=== PATIENT | male | born 2000 | race Caucasian/White ===

== ENCOUNTER 2020-02-20 16:50 | Inpatient (IN) ==
[2020-02-20] MEDS ORDERED: MoRPHine SULFATE 4 MG/ML 1 ML CARP\\VIAL IV STA (17:15)
[2020-02-20] MEDS ORDERED: SODIUM CHLORIDE 0.9% 1000ML 500 ML IV ONE (17:15)
[2020-02-20] MEDS ORDERED: KETOROLAC TROMETHAMINE 15 MG/ML VIAL IV STA (17:15)
[2020-02-20] MEDS ORDERED: diphenhydrAMINE 50 MG/ML VIAL IV STA (17:15)
--- NOTE | 2020-02-20 17:23 | Emergency Department Note ---
Impression & Plan Meningitis, Headache, Stiff neck ED Provider Note NAME: GHULAM BONILLA AGE: 19 SEX: M : 2000 ARRIVES VIA: Walk-In INFORMANT: [Patient][, ] ED PROVIDER(S): [Michael Gil MD] CHIEF COMPLAINT: Flulike symptoms HISTORY OF PRESENT ILLNESS: The patient is a 19-year-old male presents to the ER with around 20 hours of flulike symptoms. The patient had a temperature of around 103 last evening. He has neck pain, body aches, and headache. His pain is an 8/10. The patient was here earlier this morning, coronavirus testing was negative. Chest x-ray and lab work was unremarkable. He was felt to be suffering from a general viral illness. The patient states that since being discharged, he has had worsening symptoms, he has a diffuse headache and neck pain, he is concerned about the possibility of meningitis. This diagnosis was discussed with him earlier this morning. The patient has had a lumbar puncture before, he understands the procedure and the necessity of obtaining spinal fluid to rule out meningitis. There has been no sore throat, no cough, he has had no known coronavirus exposures. No urinary complaints. No abdominal pain, no rash. No known tick bites. REVIEW OF SYSTEMS: See HPI for pertinent positives and negatives. A total of ten systems were reviewed and were otherwise negative. PMHx/PSHx: See Below SOCIAL HISTORY: See Below. PHYSICAL EXAM: GENERAL: Patient is in no acute distress. HEENT: No acute trauma, normocephalic atraumatic, mucous membranes moist, no nasal congestion, no scleral icterus. NECK: No stridor, no adenopathy, no meningismus, trachea is midline. Flexes chin to chest without difficulty. LUNGS: Clear to auscultation bilaterally, no wheeze, no rhonchi, breath sounds equal. HEART: Without murmurs gallops or rubs, regular rate and rhythm. ABDOMEN: Soft, nontender, bowel sounds positive, no hernias, no peritonitis. EXTREMITIES: No cyanosis or edema, full range of motion of all the joints without pain or difficulty, no signs for acute trauma. NEUROLOGIC: Oriented x 3, no acute motor or sensory deficits, no focal weakness. SKIN: No rash, no jaundice, no diaphoresis. DIFFERENTIAL DIAGNOSIS: Sepsis, UTI, pneumonia, metabolic, electrolyte abnormalities, coronavirus, Lyme disease, meningitis, cardiac sources, intracerebral event, toxicologic, neurologic, as well as other pathologies. EMERGENCY DEPARTMENT COURSE/PROCEDURES: Lumbar puncture: This procedure was performed by me. Risks and benefits of the procedure were discussed. Patient was placed seated on the stretcher. Lumbar landmarks were identified. Betadine was used for prep. Sterile drapes were applied. Using sterile technique, lidocaine was used to anesthetize the lumbar area. Using sterile technique, I was able to access the spinal canal with a 22- gauge spinal needle. There were no complications. Fluid was collected for analysis and sent to the lab. Patient tolerated the procedure well. MEDICAL DECISION MAKING: There is no leukocytosis. The patient is mildly anemic with a hemoglobin of 12.6. There is a normal platelet count. I did review his laboratory testing from earlier today. He did not have any significant electrolyte abnormality, no renal failure. Covid testing was negative. The patient presents with a headache and neck stiffness. He had a fever last night. He did have concern for meningitis. I spoke to the patient about performing a lumbar puncture, he did consent. The risks and benefits were discussed. The lumbar puncture was done as mentioned above, no complications. The fluid was cloudy. Analysis of the fluid does suggest meningitis. His of bio-fire was positive for Neisseria. The patient was given IV Decadron, IV ceftriaxone. He was ordered for IV vancomycin. He received IV saline for hydration, IV morphine for pain, IV Toradol for pain. He received IV Benadryl to help with his headache and with potential nausea. I spoke to the patient. I spoke with his father over the phone as well. Ho spitalization is warranted. The patient looks well despite the diagnosis of potential Neisseria meningitis. I spoke with case management. The on-call hospitalist was consulted. Past Med/Surg History Medical History AML (acute myeloblastic leukemia) s/p bone marrow transplant.. last chemo in 2018 Cardiomyopathy Social History Smoking Status: Never smoker Do You Dip or Chew Tobacco: No; Hx Alcohol Use: No Hx Substance Use: No Preferred Language: Telugu Communication Ability: Effective Stockroom Inventory Clerk Required: No Beliefs That Will Affect Care: None Current Living Situation: Alone Other Information That Helps Us Care for You: No Feels Safe at Home: Yes Safety Concerns: Feels Safe At This Time Assistive Devices: None Allergies Allergies Allergy/AdvReac Type Severity Reaction Status Date / Time peanut Allergy Severe Anaphylaxis Verified 02/20/20 06:37 ALL NUTS Allergy Severe Hives Uncoded 02/20/20 20:27 Home Meds Home Medications Medication Instructions Recorded Confirmed ascorbic acid (vitamin C) [Vitamin 0 mg PO DAILY 02/20/20 02/20/20 C] lactobacillus combination no.4 0 mmu cells PO DAILY 02/20/20 02/20/20 [Probiotic] lisinopril 10 mg PO DAILY 02/20/20 02/20/20 multivitamin 1 tab PO DAILY 02/20/20 02/20/20 Results & Data (ED) Vital Signs Vital Signs - 24 hr 02/20/20 16:56 02/20/20 17:31 02/20/20 17:35 Temperature 36.6 C Temperature Source Oral Pulse Rate 77 64 49 L Pulse Rate from SpO2 Sensor 60 52 L Respiratory Rate 18 18 15 Respiratory Effort / Characteristics Non-Labored Spontaneous Respiratory Depth Normal Respiratory Pattern Regular Blood Pressure 127/68 119/71 Blood Pressure Mean 87 89 Blood Pressure Position Sitting Pulse Oximetry 99 98 100 Oxygen Delivery Method Room Air Sepsis Recent Fever Within 48 Hours No Sepsis New/Unexplained Change in Mental Status N/A Sepsis Action Taken by Nursing No Action Required 02/20/20 18:00 02/20/20 18:30 02/20/20 19:00 Temperature Temperature Source Pulse Rate 60 59 L 55 L Pulse Rate from SpO2 Sensor 57 L 58 L Respiratory Rate 14 14 13 Respiratory Effort / Characteristics Respiratory Depth Respiratory Pattern Blood Pressure 136/54 L 124/44 L 128/64 Blood Pressure Mean 75 89 94 Blood Pressure Position Pulse Oximetry 99 99 Oxygen Delivery Method Sepsis Recent Fever Within 48 Hours Sepsis New/Unexplained Change in Mental Status Sepsis Action Taken by Nursing 02/20/20 19:30 02/20/20 20:00 02/20/20 20:30 Temperature Temperature Source Pulse Rate 59 L 55 L 56 L Pulse Rate from SpO2 Sensor Respiratory Rate 15 18 18 Respiratory Effort / Characteristics Respiratory Depth Respiratory Pattern Blood Pressure 125/69 126/71 138/61 Blood Pressure Mean 78 88 96 Blood Pressure Position Pulse Oximetry Oxygen Delivery Method Sepsis Recent Fever Within 48 Hours Sepsis New/Unexplained Change in Mental Status Sepsis Action Taken by Care Home Medications Current Medication List: was personally reviewed by me Laboratory Data Attestation: I reviewed the patient's lab results. Result diagrams: 02/20/20 17:25 Lab Results 02/20/20 02/20/20 02/20/20 Range/Units 17:25 17:25 18:30 WBC 9.48 (4.8-10.8) K/uL RBC 3.96 L (4.7-6.1) M/uL Hgb 12.6 L (14.0-18.0) g/dL Hct 38.1 L (42-52) % MCV 96.2 (80-100) fL MCH 31.8 (25-34) pg MCHC 33.1 (32-36) g/dL RDW Std Deviation 46.1 (36.4-46.3) fL RDW Coeff of Navya 13.3 (11.5-14.5) % Plt Count 159 (130-400) K/uL MPV 9.4 (7.4-10.4) fL Immature Gran % (Auto) 0.1 % Neut % (Auto) 84.0 % Lymph % (Auto) 7.6 % Colbert % (Auto) 8.3 % Eos % (Auto) 0.0 % Baso % (Auto) 0.0 % Neut # (Auto) 7.96 H (1.4-6.5) K/uL Lymph # (Auto) 0.72 L (1.2-3.4) K/uL Colbert # (Auto) 0.79 H (0.11-0.59) K/uL Eos # (Auto) 0.00 (0-0.5) K/uL Baso # (Auto) 0.00 (0-0.2) K/uL Immature Gran # (Auto) 0.01 (0.00-0.02) K/uL CSF Appearance CSF Color Xanthrochromic CSF WBC (0-5) /uL CSF RBC (0-) /uL CSF Cell Count Tube # CSF Mononuclear WBCs % CSF Mononuclear WBCs % % CSF Polynuclear WBCs % CSF Polynuclear WBCs % % CSF Chemistry Tube # 1 CSF Glucose < 1 L (40-70) mg/dl CSF Total Protein 841.0 H (15-45) mg/dl CSF C.neoform/gat PCR (NotDetected) CSF CMV DNA (PCR) (NotDetected) CSF Enterovirus (PCR) (NotDetected) CSF E. coli K1 (PCR) (NotDetected) CSF H. influenzae (PCR) (NotDetected) CSF HSV I (PCR) (NotDetected) CSF HSV II (PCR) (NotDetected) CSF HHV 6 (PCR) (NotDetected) CSF L.monocytogenes PCR (NotDetected) CSF N. meningitidis PCR (NotDetected) CSF Parechovirus (PCR) (NotDetected) CSF S. agalactiae (PCR) (NotDetected) CSF S. pneumoniae (PCR) (NotDetected) CSF VZV DNA (PCR) (NotDetected) Lyme Disease IgG Ab Negative (Negative) Lyme Disease IgM Ab Negative (Negative) 02/20/20 02/20/20 Range/Units 18:30 18:30 WBC (4.8-10.8) K/uL RBC (4.7-6.1) M/uL Hgb (14.0-18.0) g/dL Hct (42-52) % MCV (80-100) fL MCH (25-34) pg MCHC (32-36) g/dL RDW Std Deviation (36.4-46.3) fL RDW Coeff of Navya (11.5-14.5) % Plt Count (130-400) K/uL MPV (7.4-10.4) fL Immature Gran % (Auto) % Neut % (Auto) % Lymph % (Auto) % Colbert % (Auto) % Eos % (Auto) % Baso % (Auto) % Neut # (Auto) (1.4-6.5) K/uL Lymph # (Auto) (1.2-3.4) K/uL Colbert # (Auto) (0.11-0.59) K/uL Eos # (Auto) (0-0.5) K/uL Baso # (Auto) (0-0.2) K/uL Immature Gran # (Auto) (0.00-0.02) K/uL CSF Appearance Cloudy CSF Color Yellow Xanthrochromic Xanthochromic CSF WBC 24123 H* (0-5) /uL CSF RBC 530 (0-) /uL CSF Cell Count Tube # 3 CSF Mononuclear WBCs 5.0 % CSF Mononuclear WBCs % 7.3 % CSF Polynuclear WBCs 95.0 % CSF Polynuclear WBCs % 92.7 % CSF Chemistry Tube # Cancelled CSF Glucose Cancelled (40-70) mg/dl CSF Total Protein (15-45) mg/dl CSF C.neoform/gat PCR Not Detected (NotDetected) CSF CMV DNA (PCR) Not Detected (NotDetected) CSF Enterovirus (PCR) Not Detected (NotDetected) CSF E. coli K1 (PCR) Not Detected (NotDetected) CSF H. influenzae (PCR) Not Detected (NotDetected) CSF HSV I (PCR) Not Detected (NotDetected) CSF HSV II (PCR) Not Detected (NotDetected) CSF HHV 6 (PCR) Not Detected (NotDetected) CSF L.monocytogenes PCR Not Detected (NotDetected) CSF N. meningitidis PCR DETECTED A* (NotDetected) CSF Parechovirus (PCR) Not Detected (NotDetected) CSF S. agalactiae (PCR) Not Detected (NotDetected) CSF S. pneumoniae (PCR) Not Detected (NotDetected) CSF VZV DNA (PCR) Not Detected (NotDetected) Lyme Disease IgG Ab (Negative) Lyme Disease IgM Ab (Negative) Administered Medications Morphine Sulfate (Morphine Sulfate 2 Mg/Ml Carp) 2 mg IV Q3H PRN PRN Reason: Severe Pain Stop: 03/05/20 22:24 Last Admin: 02/20/20 22:54 Dose: 2 mg Documented by: [id number] Discontinued Medications Ceftriaxone Sodium (Ceftriaxone Sodium 2000mg/70ml D5w) 2,000 mg IV ONE ONE Stop: 02/20/20 19:01 Last Admin: 02/20/20 18:58 Dose: 2,000 mg Documented by: [id number] Dexamethasone (Dexamethasone Sod Inj 10 Mg/Ml Vial) 10 mg IV NOW STA Stop: 02/20/20 18:30 Last Admin: 02/20/20 18:58 Dose: 10 mg Documented by: [id number] Diphenhydramine HCl (Diphenhydramine 50 Mg/Ml Vial) 25 mg IV NOW STA Stop: 02/20/20 17:16 Last Admin: 02/20/20 17:38 Dose: 25 mg Documented by: [id number] Sodium Chloride (Nss 1000ml) 500 mls @ 999 mls/hr IV .Q31M ONE Stop: 02/20/20 17:45 Last Infusion: 02/20/20 20:15 Dose: 0 mls/hr Documented by: [id number] Admin: 02/20/20 17:38 Dose: 999 mls/hr Documented by: [id number] Vancomycin HCl 2,000 mg/ (Sodium Chloride) 540 mls @ 200 mls/hr IV ONE ONE Stop: 02/20/20 21:42 Last Infusion: 02/20/20 22:23 Dose: 0 mls/hr Documented by: [id number] Admin: 02/20/20 19:30 Dose: 200 mls/hr Documented by: [id number] Ketorolac Tromethamine (Ketorolac Tromethamine 15 Mg/Ml Vial) 15 mg IV NOW STA Stop: 02/20/20 17:16 Last Admin: 02/20/20 17:38 Dose: 15 mg Documented by: [id number] Ketorolac Tromethamine (Ketorolac Tromethamine 15 Mg/Ml Vial) Confirm Administered Dose 15 mg .ROUTE .STK-MED ONE Stop: 02/20/20 22:27 Last Admin: 02/20/20 22:29 Dose: 15 mg Documented by: [id number] Lidocaine HCl (Lidocaine Hcl 1% 20 Ml Vial) Confirm Administered Dose 20 ml .ROUTE .STK-MED ONE Stop: 02/20/20 17:42 Last Admin: 02/20/20 20:39 Dose: Not Given Documented by: [id number] Morphine Sulfate (Morphine Sulfate 4 Mg/Ml 1 Ml Carp\Vial) 4 mg IV NOW STA Stop: 02/20/20 17:16 Last Admin: 02/20/20 17:38 Dose: 4 mg Documented by: [id number] Discharge Plan Visit Data Chief Complaint: Flu Like Symptoms Stated Complaint: HEADACHE, STIFF NECK, FLU LIKE SYMPTOMS ED Provider: Michael Gil Discharge Problem: Meningitis, Headache, Stiff neck Patient Disposition: Admitted As Inpatient Condition: Good Discharge Instructions Interventions: ED Discharge Assessment Last Done: 02/20/20 21:50 Discharge Problem: Headache Qualifiers: Headache type: unspecified Headache chronicity pattern: acute headache Intractability: not intractable Qualified Code(s): R51.9 - Headache, unspecified
[2020-02-20 17:40] LABS: Hematocrit (blood only) 38.1 % (42-52); Hemoglobin 12.6 g/dL (14.0-18.0); Immature Granulocytes # (auto) 0.01 K/uL (0.00-0.02); Immature Granulocytes % (auto) 0.1 %; Lymphocytes # (auto) 0.72 K/uL (1.2-3.4); Lymphocytes % (auto) 7.6 %; Mean Corpuscular Hemoglobin 31.8 pg (25-34); Mean Corpuscular Hgb Conc 33.1 g/dL (32-36); Mean Corpuscular Volume 96.2 fL (80-100); Mean Platelet Volume 9.4 fL (7.4-10.4); Monocytes # (auto) 0.79 K/uL (0.11-0.59); Monocytes % (auto) 8.3 %; Neutrophils # (auto) 7.96 K/uL (1.4-6.5); Platelet Count 159 K/uL (130-400); RDW Coefficient of Variation 13.3 % (11.5-14.5); RDW Standard Deviation 46.1 fL (36.4-46.3); Red Blood Count 3.96 M/uL (4.7-6.1); White Blood Count 9.48 K/uL (4.8-10.8)
[2020-02-20] MEDS ORDERED: LIDOCAINE HCL 1% 20 ML VIAL ONE (17:41)
[2020-02-20 18:29] LABS: Lyme Ab IgG w/WB Rflx Negative (Negative); Lyme Ab IgM w/WB Rflx Negative (Negative)
[2020-02-20] MEDS ORDERED: DEXAMETHASONE SOD INJ 10 MG/ML VIAL IV STA (18:29)
[2020-02-20] MEDS ORDERED: cefTRIAXone SODIUM 2000MG/70ML D5W IV ONE (19:00)
[2020-02-20] MEDS ORDERED: VANCOMYCIN HCL 2,000 MG in SODIUM CHLORIDE 0.9% 500 ML IV ONE (19:01)
[2020-02-20 19:02] LABS: CSF Chemistry Tube # 1
[2020-02-20 19:07] LABS: CSF Glucose < 1 mg/dl (40-70)
[2020-02-20 19:19] LABS: Appearance CSF Cloudy; CSF Count Tube # 3; CSF Xanthrochromic Xanthochromic; Color CSF Yellow
[2020-02-20 19:21] LABS: White Blood Cell CSF (A) 19760 /uL (0-5)
[2020-02-20 19:22] LABS: Red Blood Cell CSF (A) 530 /uL (0-)
[2020-02-20 19:24] LABS: Red Blood Cell CSF (B) 540 /uL (0-)
[2020-02-20 20:15] LABS: Mononuclear WBC CSF 7.3 %; Polynuclear WBC CSF 92.7 %
[2020-02-20 20:34] LABS: Cryptococcus neoformans/ga PCR Not Detected (NotDetected); Cytomegalovirus PCR Not Detected (NotDetected); Enterovirus PCR Not Detected (NotDetected); Escherichia coli K1 PCR Not Detected (NotDetected); Haemophilius influenzae PCR Not Detected (NotDetected); Herpes Simplex Virus 1 PCR Not Detected (NotDetected); Herpes Simplex Virus 2 PCR Not Detected (NotDetected); Human Herpes Virus 6 PCR Not Detected (NotDetected); Human Parechovirus PCR Not Detected (NotDetected); Listeria monocytogenes PCR Not Detected (NotDetected); Streptococcus agalactiae PCR Not Detected (NotDetected); Streptococcus pneumoniae PCR Not Detected (NotDetected); Varicella Zoster Virus PCR Not Detected (NotDetected)
[2020-02-20 20:36] LABS: Neisseria meningitidis PCR DETECTED (NotDetected)
--- NOTE | 2020-02-20 22:14 | History & Physical Report ---
Date of Service February 20, 2020 Assessment & Plan (1) Meningitis: Pt is a 19yo with a PMHx significant for AML s/p bone marrow transplant in 2018 and ?cardiomyopathy on Lisinopril who was admitted with acute meningitis. Acute Meningitis -Pt states he had a fever as high as 103 yesterday with a diffuse headache that woke him up from sleep at 3AM -Pt presented to the ED this AM before being discharged and coming back out of concern for meningitis -This visit afebrile, WBC WNL, having some neck pain -LP showed [id number], NZF=191, protein 841, glucose<1. -CSF PCR POSITIVE for N. Meningitides -CSF PCR negative for Strep pneumoniae, H. flu, HSV, VZV, CMV or enterovirus -CSF gram stain showed no organisms or WBCs. CSF culture pending. -Blood Cx2 pending -COVID NEGATIVE -UA unremarkable -ED Course: Vancomycin load, Dexamethasone 10mg, Rocephin 2g, pain meds -Given PCR positive for only N. meningitides (and not strep pneumoniae) will continue with just Rocephin 2g BID daily -Tylenol 1000mg q8h PRN, Toradol 15mg q6h IV PRN and morphine 2mg q3h PRN for pain -Droplet precautions -Of note, pt states he received the Menactra vaccine (covers for meningitis A, C, Y and W125) but did NOT receive the meningitis B vaccine- stated he intended to get it during break. -consider neurology consult, did not think necessary at this time. -meningitis cases per CDC guidelines needs to be reported to the state- not done tonight. Consider doing in the AM. Hx of AML -Pt states he was diagnosed in August 2017 -Was [facility] at [facility] ([facility]) with a bone marrow transplant and chemotherapy that year as well -Last chemotherapy treatment was 2018 -does not appear to be immunosuppressed currently. ?Cardiomyopathy -Pt states that he is on Lisinopril daily for a "low EF" -suspect it was prescribed to help with cardiomyopathy and remodeling associated with chemotherapy -Follows with a b and b gang worker from [facility] yearly, pt unable to recall her name -continue lisinopril 10mg daily -consider an echo, did not think necessary at this time as pt without cardiac symptoms FEN/GI: Regular diet DVT prophylaxis: Ambulation as tolerated CODE STATUS: Full code Dispo: Med/Surg (2) History of bone marrow transplant: History of Present Illness Primary Care Provider: [facility] Pt is a 19yo with a PMHx significant for AML s/p bone marrow transplant in 2018 and ?cardiomyopathy on Lisinopril who was admitted with acute meningitis. Pt states that he was in his usual state of health until yesterday when he developed a fever of 103. He was then awoken from sleep with a headache that was diffuse and 10/10 and he presented to the ED this AM. He states that it was football weekend and he was at a constitution party on Wednesday in someone's apartment which was packed with many people not wearing masks. No known positive COVID contacts however but states it is possible. States he got the Menactra vaccine but did not get the meningitis B vaccine, which he intended to get once he went home to [place] for thanksgiving. States he has some associated photophobia, neck pain but not neck stiffness and in addition to the headache some pain behind his eyeballs. Denies any N/V, phonophobia. No known drug allergies. His surgical History includes the bone marrow transplant. Fam Hx unremarkable. Current meds include Lisinopril 10mg daily and multivitamins. 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 States he does not smoke or vape, is a social drinker and does not use recreational drugs. ED Course: Vancomycin load, Dexamethasone 10mg, Rocephin 2g, pain meds Allergies Allergy/AdvReac Type Severity Reaction Status Date / Time peanut Allergy Severe Anaphylaxis Verified 02/20/20 06:37 ALL NUTS Allergy Severe Hives Uncoded 02/20/20 20:27 Home Medications Home Medications Medication Instructions Recorded Confirmed Type ascorbic acid (vitamin C) [Vitamin 0 mg PO DAILY 02/20/20 02/20/20 History C] lactobacillus combination no.4 0 mmu cells PO DAILY 02/20/20 02/20/20 History [Probiotic] lisinopril 10 mg PO DAILY 02/20/20 02/20/20 History multivitamin 1 tab PO DAILY 02/20/20 02/20/20 History Past Med/Surg History Medical History AML (acute myeloblastic leukemia) s/p bone marrow transplant.. last chemo in 2018 Cardiomyopathy Social History Smoking Status: Never smoker Do You Dip or Chew Tobacco: No; Hx Alcohol Use: No Hx Substance Use: No Preferred Language: Malay Communication Ability: Effective [employer] Special Education Teacher Required: No Beliefs That Will Affect Care: None Current Living Situation: Alone Other Information That Helps Us Care for You: No Feels Safe at Home: Yes Safety Concerns: Feels Safe At This Time Assistive Devices: None Review of Systems Constitutional: + fever; no chills and no sweats Eyes: + photophobia; no worsening vision Ear, Nose, Mouth, Throat: no nasal congestion and no sore throat Respiratory: no cough and no dyspnea Cardiovascular: no chest pain, no dyspnea, no palpitations and no edema Gastrointestinal: no abdominal pain, no nausea, no vomiting, no constipation, no diarrhea/loose stools and no blood in stools Genitourinary: no dysuria Musculoskeletal: + neck pain; no back pain and no stiffness Integumentary: no rash Neurologic: + headache(s); no tingling, no numbness, no dizziness and no confusion Psychiatric: no confusion Physical Exam Physical Exam: General: Alert, oriented. No acute distress, laying in bed Skin: No noted rashes or bruises Psych: Appropriate mood and affect Neuro: CNII-XII grossly intact, Kernig's sign negative on my exam HEENT: NC/AT, PERRLA, EOMI, oropharynx moist. Chest: Nontender to palpation. CV: RRR, Normal s1, s2. No murmurs appreciated Resp: Breath sounds clear bilaterally, no increased effort of breathing. No crackles/rhonchi/rales. Abdomen: Soft, nontender, nondistended. No guarding. No organomegaly appreciated. Extremities: No edema in lower extremities bilaterally. Results & Data Results & Data ([facility]) Vital Signs (Past 12 Hours) Vital Signs Temp Pulse Resp BP Pulse Ox 02/20/20 20:00 55 L 18 126/71 02/20/20 19:30 59 L 15 125/69 02/20/20 19:00 55 L 13 128/64 02/20/20 18:30 59 L 14 124/44 L 99 02/20/20 18:00 60 14 136/54 L 99 02/20/20 17:35 49 L 15 100 02/20/20 17:31 64 18 119/71 98 02/20/20 16:56 36.6 C 77 18 127/68 99 Supervising Physician Co-Signing Physician Notes Patient seen and examined, chart reviewed, case discussed with Dr. Tinsley and I agree with her assessment and plan as documented above. Briefly, patient is a 19yo male presenting with bacterial meningitis [place] [address] WBCs, elevated protein at 841 wtih N. meningitidis PCR detected. Patient is afebrile, HD stable Mild photophobia and neck stiffness Nontoxic in appearance No neurological deficits Labs and images reviewed Assessment/Plan - Neisseria meningitis -Ceftriaxone 2gm IV daily -Droplet precautions -Neuro checks -Remainder of plan as above Resident Activity Tracking Resident Involvement: Resident Care Provided Care Provided: Adult Hospital Medicine
[2020-02-20] MEDS ORDERED: KETOROLAC TROMETHAMINE 15 MG/ML VIAL ONE (22:26)
[2020-02-20] MEDS: MoRPHine SULFATE 2 MG/ML CARP IV PRN (22:54)
[2020-02-21] MEDS: MoRPHine SULFATE 2 MG/ML CARP IV PRN ×7 (01:48→22:27)
[2020-02-21] MEDS: ACETAMINOPHEN 500 MG TAB PO PRN ×4 (01:48→22:33)
--- NOTE | 2020-02-21 06:04 | Billing Data ---
Date of Service February 20, 2020 Coding Level of Care Code 63173 Initial Inpt Care Lvl 2
[2020-02-21] MEDS: KETOROLAC TROMETHAMINE 15 MG/ML VIAL IV PRN ×3 (06:33→18:30)
[2020-02-21 07:34] LABS: Hematocrit (blood only) 35.3 % (42-52); Hemoglobin 11.5 g/dL (14.0-18.0); Immature Granulocytes # (auto) 0.03 K/uL (0.00-0.02); Immature Granulocytes % (auto) 0.3 %; Lymphocytes % (auto) 10.8 %; Mean Corpuscular Hemoglobin 31.3 pg (25-34); Mean Corpuscular Hgb Conc 32.6 g/dL (32-36); Mean Corpuscular Volume 95.9 fL (80-100); Mean Platelet Volume 9.5 fL (7.4-10.4); Monocytes # (auto) 0.98 K/uL (0.11-0.59); Monocytes % (auto) 8.8 %; Neutrophils # (auto) 8.92 K/uL (1.4-6.5); Neutrophils % (auto) 80.1 %; Platelet Count 150 K/uL (130-400); RDW Coefficient of Variation 13.6 % (11.5-14.5); RDW Standard Deviation 47.2 fL (36.4-46.3); Red Blood Count 3.68 M/uL (4.7-6.1); White Blood Count 11.13 K/uL (4.8-10.8)
--- NOTE | 2020-02-21 07:44 | Hospitalist Progress Note ---
Date of Service February 21, 2020 Assessment & Plan (1) Meningitis: Pt is a 19yo with a PMHx significant for AML s/p bone marrow transplant in 2018 and ?cardiomyopathy on Lisinopril who was admitted with acute meningitis. Acute Meningitis -Pt states he had a fever as high as 103 yesterday with a diffuse headache that woke him up from sleep at 3AM -Pt presented to the ED this AM before being discharged and coming back out of concern for meningitis -This visit afebrile, WBC WNL, having some neck pain -LP showed [id number], BTX=737, protein 841, glucose<1. -CSF PCR POSITIVE for N. Meningitides -CSF PCR negative for Strep pneumoniae, H. flu, HSV, VZV, CMV or enterovirus -CSF gram stain showed no organisms or WBCs. CSF culture pending. -Blood Cx2 pending -COVID NEGATIVE -UA unremarkable -ED Course: Vancomycin load, Dexamethasone 10mg, Rocephin 2g, pain meds -Given PCR positive for only N. meningitides (and not strep pneumoniae) will continue with just Rocephin 2g BID daily -Tylenol 1000mg q8h PRN, Toradol 15mg q6h IV PRN and morphine 2mg q3h PRN for pain -Droplet precautions -Of note, pt states he received the Menactra vaccine (covers for meningitis A, C, Y and W125) but did NOT receive the meningitis B vaccine- stated he intended to get it during break. -consider neurology consult, did not think necessary at this time. -meningitis cases per CDC guidelines needs to be reported to the state- not done tonight. Consider doing in the AM. Hx of AML -Pt states he was diagnosed in August 2017 -Was treated at the [facility] ([facility]) with a bone marrow transplant and chemotherapy that year as well -Last chemotherapy treatment was 2018 -does not appear to be immunosuppressed currently. ?Cardiomyopathy -Pt states that he is on Lisinopril daily for a "low EF" -suspect it was prescribed to help with cardiomyopathy and remodeling associated with chemotherapy -Follows with a distance learning program coordinator from [facility] yearly, pt unable to recall her name -continue lisinopril 10mg daily -consider an echo, did not think necessary at this time as pt without cardiac symptoms FEN/GI: Regular diet DVT prophylaxis: Ambulation as tolerated CODE STATUS: Full code Dispo: Med/Surg (2) History of bone marrow transplant: Admission and Anticipated Discharge Date Admission Date: February 20, 2020 Results & Data Results & Data ([facility]) Vital Signs (Past 12 Hours) Vital Signs Temp Pulse Pulse Resp BP BP Pulse Ox 02/20/20 22:15 36.8 C 52 L 14 144/81 H 98 02/20/20 21:30 55 L 19 129/71 02/20/20 21:00 82 18 128/69 02/20/20 20:30 56 L 18 138/61 02/20/20 20:00 55 L 18 126/71
[2020-02-21] MEDS: cefTRIAXone SODIUM 2,000 MG in DEXTROSE 5% 50 ML IV SCH ×2 (08:01→20:05)
[2020-02-21 08:10] LABS: BUN Creatinine Ratio 12.4 (10-20); Calcium 9.1 mg/dl (8.5-10.1); Creatinine Clr Calc Pharmacy 103.3 ml/min; Est GFR (African American) 106.3; Est GFR (Non-African American) 91.7
[2020-02-21] MEDS: lisinopril 10 MG TAB PO SCH (08:11)
--- NOTE | 2020-02-21 19:11 | Hospitalist Progress Note ---
Date of Service February 21, 2020 Assessment & Plan (1) Meningitis: neissieria - fortunately doing better on rocephin - continue. d/w pt likely will need to treat for 7 days rocephin -serial exams, supportive care, anticipate improvement -infection control team notified to ensure appropriate DONA notifications/etc (2) History of bone marrow transplant: fortunately doing well despite above -was to finish re-vaccinations later this fall - should follow through with this (3) DVT prophylaxis: ambulation (4) Discharge planning issues: stable on med/surg. continue ceftriaxone - likely will need to be here to complete 7 days IV treatment Admission and Anticipated Discharge Date Admission Date: February 20, 2020 Subjective headache off and on - worse a little when i see him but notes way better than it was before. generally feeling better than before. neck less stiff. photophobia and phonophobia. no rashes mom present updated to the best of my ability and to her satisfaction. asked us to call his doc at [facility] - gave pager # of [phone] - tried multiple times -- no ability to enter a number Review of Systems Review of Systems: All systems reviewed & are unremarkable except as noted in HPI & below Physical Exam Physical Exam: gen aaox3 pleasant nad heent nc at mmm neck fairly supple maybe sl tight after about 30 degrees of flexion. cn 2-12 grossly intact gross motor/sensory intact. breathing unlabored no accessory muscles good effort skin no rashes no pallor or icterus Results & Data Results & Data ([facility]) Vital Signs (Past 12 Hours) Vital Signs Temp Pulse Resp BP Pulse Ox 02/21/20 15:15 97.9 F 57 L 16 113/70 100 02/21/20 07:55 98.2 F 60 15 125/66 98 PG Care Time/CCT Total # of Minutes Spent Total Time Spent with Patient: Total time spent is greater than 50% in coordination of care (as documented) at patient's floor/unit and/or counseling patient: Coding Level of Care Code 69100 Subseq Hosp Care Lvl 3 Diagnoses Meningitis G03.9 History of bone marrow transplant Z94.81 DVT prophylaxis Z29.9 Discharge planning issues Z02.9
[2020-02-21] MEDS ORDERED: MELATONIN 3 MG TAB PO PRN (22:17)
[2020-02-21] MEDS: PANTOprazole 40 MG in SYRINGE 0 ML IV SCH (22:27)
--- NOTE | 2020-02-21 22:34 | Communication Note ---
Date of Service: February 21, 2020 Pt requested to speak with physician overnight. States whenever he is awake, he has no headache, so feels like his symptoms are improving in that sense. However whenever he falls alseep, a 7/10 headache will wake him up from sleep. States he is tired and would like to sleep. In discussion with Dr. Ott, Toradol was increased to 30mg IV q6h, p rotonix 40mg BID was ordered for gut protection and melatonin 6mg was ordered to help with sleep. We did not think head imaging was warranted at this time. Can consider if symptoms are getting worse. Resident Activity Tracking Resident Involvement: Occasional Babysitter Coverage Note Care Provided: Adult Hospital Medicine
[2020-02-22] MEDS: KETOROLAC 30 MG/ML VIAL IV PRN ×3 (00:28→18:19)
[2020-02-22] MEDS: MoRPHine SULFATE 2 MG/ML CARP IV PRN ×6 (01:31→23:49)
[2020-02-22] MEDS: ONDANSETRON INJ 2 MG/ML 2 ML VIAL IV PRN ×3 (01:32→17:32)
--- NOTE | 2020-02-22 02:57 | Communication Note ---
Date of Service: February 22, 2020 Notified at about 1AM that pt had the acute onset of N/V. Pt stated that the headache woke him up from sleep once more, 11/02 but this time he vomitted as well. On my exam, neuro exam unremarkable. Ordered Zofran and a stat CT head wo contrast to rule out cerebral edema or increased ICP. 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
[2020-02-22 06:26] LABS: Eosinophils # (auto) 0.02 K/uL (0-0.5); Eosinophils % (auto) 0.2 %; Hemoglobin 10.8 g/dL (14.0-18.0); Immature Granulocytes # (auto) 0.02 K/uL (0.00-0.02); Immature Granulocytes % (auto) 0.2 %; Lymphocytes # (auto) 1.52 K/uL (1.2-3.4); Lymphocytes % (auto) 16.1 %; Mean Corpuscular Hemoglobin 31.3 pg (25-34); Mean Corpuscular Hgb Conc 32.7 g/dL (32-36); Mean Corpuscular Volume 95.7 fL (80-100); Mean Platelet Volume 9.4 fL (7.4-10.4); Monocytes # (auto) 0.54 K/uL (0.11-0.59); Monocytes % (auto) 5.7 %; Neutrophils # (auto) 7.34 K/uL (1.4-6.5); Neutrophils % (auto) 77.8 %; Platelet Count 138 K/uL (130-400); RDW Coefficient of Variation 13.4 % (11.5-14.5); RDW Standard Deviation 46.7 fL (36.4-46.3); Red Blood Count 3.45 M/uL (4.7-6.1); White Blood Count 9.44 K/uL (4.8-10.8)
--- NOTE | 2020-02-22 06:49 | CT Scan Report ---
CT head/brain wo con CLINICAL HISTORY: Next, new nausea and vomiting, meningitis. COMPARISON STUDY: No previous studies for comparison. TECHNIQUE: Axial CT of the brain is performed from the vertex to the skull base. IV contrast was not administered for this examination. A dose lowering technique was utilized adhering to the principles of ALARA. CT DOSE: 729.78 mGycm FINDINGS: No intra or extra-axial mass lesions are visualized. There is no CT evidence of acute cortical infarc tion. There is no evidence of midline shift. There is no acute hemorrhage. No calvarial fractures ar e visualized. There is no evidence of pathologic ventricular dilatation. There is no evidence of acute sinusitis IMPRESSION: Normal noncontrast head CT. ACT 112: Negative or not required by law. Electronically signed by: Irwin Alanis M.D. 02/22/2020 6:48 AM
[2020-02-22 07:01] LABS: BUN Creatinine Ratio 13.2 (10-20); Calcium 8.8 mg/dl (8.5-10.1); Creatinine Clr Calc Pharmacy 98.2 ml/min; Est GFR (Non-African American) 86.3; Potassium 3.8 mmol/L (3.5-5.1)
[2020-02-22] MEDS: cefTRIAXone SODIUM 2,000 MG in DEXTROSE 5% 50 ML IV SCH ×2 (07:22→19:10)
[2020-02-22] MEDS: ACETAMINOPHEN 500 MG TAB PO PRN ×3 (07:31→23:26)
[2020-02-22] MEDS: lisinopril 10 MG TAB PO SCH (08:03)
[2020-02-22] MEDS: PANTOprazole 40 MG in SYRINGE 0 ML IV SCH ×2 (08:04→19:46)
--- NOTE | 2020-02-22 10:04 | Hospitalist Progress Note ---
Date of Service February 22, 2020 Assessment & Plan (1) Meningitis: Pt is a 19yo with a PMHx significant for AML s/p bone marrow transplant in 2018 and ?cardiomyopathy on Lisinopril who was admitted with acute meningitis. N. Meningitis - afebrile since admission - N. Meningitis PCR positive from CSF, CSF culture growing Gram negative bacteria - WBC down to 9.4, bcx negative at 48 hours - 7 days of Rocephin BID 02/19 - 02/25 -Droplet precautions Pain Control -Tylenol 1000mg q8h PRN, Toradol 15mg q6h IV PRN and morphine 2mg q3h PRN for pain Hx of AML -Pt states he was diagnosed in August 2017 -Was [facility] at [facility] ([facility]) with a bone marrow transplant and chemotherapy that year as well -Last chemotherapy treatment was 2017 -does not appear to be immunosuppressed currently. Chemotherapy induced Cardiomyopathy -Pt states that he is on Lisinopril daily for a "low EF" -suspect it was prescribed to help with cardiomyopathy and remodeling associated with chemotherapy -Follows with a receiver from [facility] yearly -continue lisinopril 10mg daily FEN/GI: Regular diet DVT prophylaxis: Ambulation as tolerated CODE STATUS: Full code Dispo: Med/Surg (2) History of bone marrow transplant: Admission and Anticipated Discharge Date Admission Date: February 20, 2020 Supervising Physician Co-Signing Physician Notes I personally examined the patient and verified all morales points of history and exam, discussed case, and agree with decision making with Dr Navarrete. feeling a bit better ovreall - headache off and on bad but not as bad as before vitals noted nad heent nc at mmm breathing unlabored no accessory muscles good effort no nuchal rigidity neisseria meningitis - improving. rocephin, supportive care. Subjective didn't sleep well last night. Says that his headache last night would worsen whenever he closed his eyes. did have some nausea and vomiting overnight. stat CT head negative for midline shift/intracranial bleed/signs of increased intrcranial pressure. Feeling better this am, was able to sleep after getting CT scan. headache worse when lying down rather than sitting up. still photo and phonophobic. Review of Systems Constitutional: + insomnia; no fever, no chills, no body aches and no fatigue Eyes: + photophobia Respiratory: no cough and no pain on inspiration Cardiovascular: no chest pain and no dyspnea at rest Gastrointestinal: no abdominal pain Neurologic: + headache(s); no paresthesia and no radiating pain Physical Exam Physical Exam: Constitutional: in no apparent distress, sitting comfortably in bed. Eyes: EOMI, squinting eyes to avoid light Cardiac: RRR, no murmurs, gallops or rubs. Normal S1, S2 Pulm: CTA BL, no wheezes, rhonchi, crackles or rubs, moving air well throughout both lungs Abd: soft, nontender, nondistended, normal bowel sounds, no rebound or guarding Neck: no pain with anterior flexion Ext: no pain with flexion of legs to chest back: no tenderness to palpation of lumbar spinous processes, paraspinals. No redness or tenderness surrounding LP site. Results & Data Results & Data ([facility]) Vital Signs (Past 12 Hours) Vital Signs Temp Pulse Resp BP BP Pulse Ox 02/22/20 07:50 36.9 C 55 L 16 135/55 L 100 02/22/20 00:03 36.8 C 52 L 16 162/68 H 100 Laboratory Results WBC 9.44 K/uL (4.8-10.8) 02/22/20 06:16 RBC 3.45 M/uL (4.7-6.1) L 02/22/20 06:16 Hgb 10.8 g/dL (14.0-18.0) L 02/22/20 06:16 Hct 33.0 % (42-52) L 02/22/20 06:16 MCV 95.7 fL (80-100) 02/22/20 06:16 MCH 31.3 pg (25-34) 02/22/20 06:16 MCHC 32.7 g/dL (32-36) 02/22/20 06:16 RDW Std Deviation 46.7 fL (36.4-46.3) H 02/22/20 06:16 RDW Coeff of Navya 13.4 % (11.5-14.5) 02/22/20 06:16 Plt Count 138 K/uL (130-400) 02/22/20 06:16 MPV 9.4 fL (7.4-10.4) 02/22/20 06:16 Immature Gran % (Auto) 0.2 % 02/22/20 06:16 Neut % (Auto) 77.8 % 02/22/20 06:16 Lymph % (Auto) 16.1 % 02/22/20 06:16 [place] % (Auto) 5.7 % 02/22/20 06:16 Eos % (Auto) 0.2 % 02/22/20 06:16 Baso % (Auto) 0.0 % 02/22/20 06:16 Neut # (Auto) 7.34 K/uL (1.4-6.5) H 02/22/20 06:16 Lymph # (Auto) 1.52 K/uL (1.2-3.4) 02/22/20 06:16 [place] # (Auto) 0.54 K/uL (0.11-0.59) 02/22/20 06:16 Eos # (Auto) 0.02 K/uL (0-0.5) 02/22/20 06:16 Baso # (Auto) 0.00 K/uL (0-0.2) 02/22/20 06:16 Immature Gran # (Auto) 0.02 K/uL (0.00-0.02) 02/22/20 06:16 Sodium 139 mmol/L (136-145) 02/22/20 06:16 Potassium 3.8 mmol/L (3.5-5.1) 02/22/20 06:16 Chloride 108 mmol/L (98-107) H 02/22/20 06:16 Carbon Dioxide 28 mmol/L (21-32) 02/22/20 06:16 Anion Gap 4.0 (3-11) 02/22/20 06:16 BUN 16 mg/dl (7-18) 02/22/20 06:16 Creatinine 1.21 mg/dl (0.6-1.4) 02/22/20 06:16 Est Cr Clr Drug Dosing 98.2 ml/min 02/22/20 06:16 Est GFR ( Amer) 100.0 02/22/20 06:16 Est GFR (Non-Af Amer) 86.3 02/22/20 06:16 BUN/Creatinine Ratio 13.2 (10-20) 02/22/20 06:16 Glucose 113 mg/dl (70-99) H 02/22/20 06:16 Calcium 8.8 mg/dl (8.5-10.1) 02/22/20 06:16 CSF Appearance Cloudy 02/20/20 18:30 CSF Color Yellow 02/20/20 18:30 Xanthrochromic Xanthochromic 02/20/20 18:30 CSF WBC 25770 /uL (0-5) H* 02/20/20 18:30 CSF RBC 530 /uL (0-) 02/20/20 18:30 CSF Cell Count Tube # 3 02/20/20 18:30 CSF Mononuclear WBCs 5.0 % 02/20/20 18:30 CSF Mononuclear WBCs % 7.3 % 02/20/20 18:30 CSF Polynuclear WBCs 95.0 % 02/20/20 18:30 CSF Polynuclear WBCs % 92.7 % 02/20/20 18:30 CSF Chemistry Tube # 1 02/20/20 18:30 CSF Chemistry Tube # Cancelled 02/20/20 18:30 CSF Glucose < 1 mg/dl (40-70) L 02/20/20 18: CSF Glucose Cancelled 02/20/20 18:30 CSF Total Protein 841.0 mg/dl (15-45) H 02/20/20 18:30 CSF C.neoform/gat PCR Not Detected (NotDetected) 02/20/20 18:30 CSF CMV DNA (PCR) Not Detected (NotDetected) 02/20/20 18:30 CSF Enterovirus (PCR) Not Detected (NotDetected) 02/20/20 18:30 CSF E. coli K1 (PCR) Not Detected (NotDetected) 02/20/20 18:30 CSF H. influenzae (PCR) Not Detected (NotDetected) 02/20/20 18:30 CSF HSV I (PCR) Not Detected (NotDetected) 02/20/20 18:30 CSF HSV II (PCR) Not Detected (NotDetected) 02/20/20 18:30 CSF HHV 6 (PCR) Not Detected (NotDetected) 02/20/20 18:30 CSF L.monocytogenes PCR Not Detected (NotDetected) 02/20/20 18:30 CSF N. meningitidis PCR DETECTED (NotDetected) A* 02/20/20 18:30 CSF Parechovirus (PCR) Not Detected (NotDetected) 02/20/20 18:30 CSF S. agalactiae (PCR) Not Detected (NotDetected) 02/20/20 18:30 CSF S. pneumoniae (PCR) Not Detected (NotDetected) 02/20/20 18:30 CSF VZV DNA (PCR) Not Detected (NotDetected) 02/20/20 18:30 Lyme Disease IgG Ab Negative (Negative) 02/20/20 17:25 Lyme Disease IgM Ab Negative (Negative) 02/20/20 17:25 Resident Activity Tracking Resident Involvement: Resident Care Provided Care Provided: Adult Hospital Medicine
--- NOTE | 2020-02-22 17:57 | Billing Data ---
Date of Service February 22, 2020 Coding Level of Care Code 23731 Subseq Hosp Care Lvl 3
[2020-02-23] MEDS: KETOROLAC 30 MG/ML VIAL IV PRN ×2 (01:09→15:34)
[2020-02-23] MEDS: MoRPHine SULFATE 2 MG/ML CARP IV PRN ×5 (03:33→21:51)
[2020-02-23 05:58] LABS: Eosinophils # (auto) 0.06 K/uL (0-0.5); Eosinophils % (auto) 0.8 %; Hemoglobin 10.7 g/dL (14.0-18.0); Immature Granulocytes # (auto) 0.02 K/uL (0.00-0.02); Immature Granulocytes % (auto) 0.3 %; Lymphocytes # (auto) 2.45 K/uL (1.2-3.4); Lymphocytes % (auto) 32.1 %; Mean Corpuscular Hgb Conc 32.4 g/dL (32-36); Mean Corpuscular Volume 95.7 fL (80-100); Mean Platelet Volume 9.8 fL (7.4-10.4); Monocytes # (auto) 0.45 K/uL (0.11-0.59); Monocytes % (auto) 5.9 %; Neutrophils # (auto) 4.65 K/uL (1.4-6.5); Neutrophils % (auto) 60.9 %; Platelet Count 163 K/uL (130-400); RDW Coefficient of Variation 13.3 % (11.5-14.5); RDW Standard Deviation 46.4 fL (36.4-46.3); Red Blood Count 3.45 M/uL (4.7-6.1); White Blood Count 7.63 K/uL (4.8-10.8)
[2020-02-23 06:25] LABS: BUN Creatinine Ratio 10.7 (10-20); Creatinine Clr Calc Pharmacy 90.7 ml/min; Est GFR (African American) 90.8; Est GFR (Non-African American) 78.4; Potassium 4.1 mmol/L (3.5-5.1)
[2020-02-23] MEDS: cefTRIAXone SODIUM 2,000 MG in DEXTROSE 5% 50 ML IV SCH ×2 (08:16→20:02)
[2020-02-23] MEDS: ACETAMINOPHEN 500 MG TAB PO PRN ×2 (08:54→20:04)
[2020-02-23] MEDS: PANTOprazole 40 MG in SYRINGE 0 ML IV SCH (08:57)
[2020-02-23] MEDS: lisinopril 10 MG TAB PO SCH (09:05)
--- NOTE | 2020-02-23 09:19 | Hospitalist Progress Note ---
Date of Service February 23, 2020 Assessment & Plan (1) Meningitis: Pt is a 19yo with a PMHx significant for AML s/p bone marrow transplant in 2018 and cardiomyopathy on Lisinopril who was admitted with acute meningitis. N. Meningitis: stable - afebrile since admission - N. Meningitis PCR positive from CSF, CSF culture growing Gram negative bacteria - continuing to improve - 7 days of Rocephin BID 02/19 - 02/25 - Droplet precautions Pain Control -Tylenol 1000mg q8h PRN, Toradol 15mg q6h IV PRN and morphine 2mg q3h PRN for pain - zofran for nausea Hx of AML -Pt states he was diagnosed in August 2017 -Was [facility] at [facility] ([facility]) with a bone marrow transplant and chemotherapy that year as well -Last chemotherapy treatment was 2017 -does not appear to be immunosuppressed currently. Chemotherapy induced Cardiomyopathy -Follows with a shear operator helper from [facility] yearly -continue lisinopril 10mg daily FEN/GI: Regular diet DVT prophylaxis: Ambulation as tolerated CODE STATUS: Full code Dispo: Med/Surg (2) History of bone marrow transplant: Admission and Anticipated Discharge Date Admission Date: February 20, 2020 Supervising Physician Co-Signing Physician Notes I personally examined the patient and verified all morales points of history and exam, discussed case, and agree with decision making with Dr Navarrete. sleeping each time i see him - see above. d/w nursing as well - seems to be doing better still headache but less than before vitals noted nad resting comfortably each of the multiple times i see him. breathing unlabored. neisseria meningitis - improving. continue rocephin, supportive care. otherwise as above Subjective continuing to have headaches. neck tightness improving. still having photo and phonophobia. sleep cycle somewhat off as he wasn't able to sleep till 3 am. Review of Systems Eyes: + photophobia Ear, Nose, Mouth, Throat: phonophobia Gastrointestinal: + nausea Neurologic: + headache(s); no tingling, no numbness and no confusion Physical Exam Physical Exam: Constitutional: in no apparent distress, sitting comfortably in bed. Eyes: EOMI, squinting eyes to avoid light Cardiac: RRR, no murmurs, gallops or rubs. Normal S1, S2 Pulm: CTA BL, no wheezes, rhonchi, crackles or rubs, moving air well throughout both lungs Neck: no pain with anterior flexion, lateral flexion. no pain to palpation of cervical spinous process Results & Data Results & Data ([facility]) Vital Signs (Past 12 Hours) Vital Signs Temp Pulse Resp BP Pulse Ox 02/23/20 08:56 136/70 02/23/20 07:35 37.3 C 46 L 14 133/67 100 02/22/20 22:24 36.9 C 57 L 16 135/70 99 Laboratory Results WBC 7.63 K/uL (4.8-10.8) 02/23/20 05:25 RBC 3.45 M/uL (4.7-6.1) L 02/23/20 05:25 Hgb 10.7 g/dL (14.0-18.0) L 02/23/20 05:25 Hct 33.0 % (42-52) L 02/23/20 05:25 MCV 95.7 fL (80-100) 02/23/20 05:25 MCH 31.0 pg (25-34) 02/23/20 05:25 MCHC 32.4 g/dL (32-36) 02/23/20 05:25 RDW Std Deviation 46.4 fL (36.4-46.3) H 02/23/20 05:25 RDW Coeff of Navya 13.3 % (11.5-14.5) 02/23/20 05:25 Plt Count 163 K/uL (130-400) 02/23/20 05:25 MPV 9.8 fL (7.4-10.4) 02/23/20 05:25 Immature Gran % (Auto) 0.3 % 02/23/20 05:25 Neut % (Auto) 60.9 % 02/23/20 05:25 Lymph % (Auto) 32.1 % 02/23/20 05:25 [place] % (Auto) 5.9 % 02/23/20 05:25 Eos % (Auto) 0.8 % 02/23/20 05:25 Baso % (Auto) 0.0 % 02/23/20 05:25 Neut # (Auto) 4.65 K/uL (1.4-6.5) 02/23/20 05:25 Lymph # (Auto) 2.45 K/uL (1.2-3.4) 02/23/20 05:25 [place] # (Auto) 0.45 K/uL (0.11-0.59) 02/23/20 05:25 Eos # (Auto) 0.06 K/uL (0-0.5) 02/23/20 05:25 Baso # (Auto) 0.00 K/uL (0-0.2) 02/23/20 05:25 Immature Gran # (Auto) 0.02 K/uL (0.00-0.02) 02/23/20 05:25 Sodium 141 mmol/L (136-145) 02/23/20 05:25 Potassium 4.1 mmol/L (3.5-5.1) 02/23/20 05:25 Chloride 109 mmol/L (98-107) H 02/23/20 05:25 Carbon Dioxide 27 mmol/L (21-32) 02/23/20 05:25 Anion Gap 5.0 (3-11) 02/23/20 05:25 BUN 14 mg/dl (7-18) 02/23/20 05:25 Creatinine 1.31 mg/dl (0.6-1.4) 02/23/20 05:25 Est Cr Clr Drug Dosing 90.7 ml/min 02/23/20 05:25 Est GFR ( Amer) 90.8 02/23/20 05:25 Est GFR (Non-Af Amer) 78.4 02/23/20 05:25 BUN/Creatinine Ratio 10.7 (10-20) 02/23/20 05:25 Glucose 100 mg/dl (70-99) H 02/23/20 05:25 Calcium 9.0 mg/dl (8.5-10.1) 02/23/20 05:25 CSF Appearance Cloudy 02/20/20 18:30 CSF Color Yellow 02/20/20 18:30 Xanthrochromic Xanthochromic 02/20/20 18:30 CSF WBC 28204 /uL (0-5) H* 02/20/20 18:30 CSF RBC 530 /uL (0-) 02/20/20 18:30 CSF Cell Count Tube # 3 02/20/20 18:30 CSF Mononuclear WBCs 5.0 % 02/20/20 18:30 CSF Mononuclear WBCs % 7.3 % 02/20/20 18:30 CSF Polynuclear WBCs 95.0 % 02/20/20 18:30 CSF Polynuclear WBCs % 92.7 % 02/20/20 18:30 CSF Chemistry Tube # 1 02/20/20 18:30 CSF Chemistry Tube # Cancelled 02/20/20 18:30 CSF Glucose < 1 mg/dl (40-70) L 02/20/20 18: CSF Glucose Cancelled 02/20/20 18:30 CSF Total Protein 841.0 mg/dl (15-45) H 02/20/20 18:30 CSF C.neoform/gat PCR Not Detected (NotDetected) 02/20/20 18:30 CSF CMV DNA (PCR) Not Detected (NotDetected) 02/20/20 18:30 CSF Enterovirus (PCR) Not Detected (NotDetected) 02/20/20 18:30 CSF E. coli K1 (PCR) Not Detected (NotDetected) 02/20/20 18:30 CSF H. influenzae (PCR) Not Detected (NotDetected) 02/20/20 18:30 CSF HSV I (PCR) Not Detected (NotDetected) 02/20/20 18:30 CSF HSV II (PCR) Not Detected (NotDetected) 02/20/20 18:30 CSF HHV 6 (PCR) Not Detected (NotDetected) 02/20/20 18:30 CSF L.monocytogenes PCR Not Detected (NotDetected) 02/20/20 18:30 CSF N. meningitidis PCR DETECTED (NotDetected) A* 02/20/20 18:30 CSF Parechovirus (PCR) Not Detected (NotDetected) 02/20/20 18:30 CSF S. agalactiae (PCR) Not Detected (NotDetected) 02/20/20 18:30 CSF S. pneumoniae (PCR) Not Detected (NotDetected) 02/20/20 18:30 CSF VZV DNA (PCR) Not Detected (NotDetected) 02/20/20 18:30 Lyme Disease IgG Ab Negative (Negative) 02/20/20 17:25 Lyme Disease IgM Ab Negative (Negative) 02/20/20 17:25 Resident Activity Tracking Resident Involvement: Resident Care Provided Care Provided: [facility] Medicine
[2020-02-23] MEDS: ONDANSETRON INJ 2 MG/ML 2 ML VIAL IV PRN (09:24)
--- NOTE | 2020-02-23 20:37 | Billing Data ---
Date of Service February 23, 2020 Coding Level of Care Code 17650 Subseq Hosp Care Lvl 2
[2020-02-24] MEDS: MoRPHine SULFATE 2 MG/ML CARP IV PRN ×3 (00:55→12:57)
[2020-02-24] MEDS: KETOROLAC 30 MG/ML VIAL IV PRN ×3 (01:59→20:22)
[2020-02-24] MEDS: ACETAMINOPHEN 500 MG TAB PO PRN ×2 (06:06→15:17)
[2020-02-24] MEDS: cefTRIAXone SODIUM 2,000 MG in DEXTROSE 5% 50 ML IV SCH ×2 (08:53→20:58)
[2020-02-24] MEDS: lisinopril 10 MG TAB PO SCH (08:59)
[2020-02-24 09:03] LABS: Eosinophils # (auto) 0.04 K/uL (0-0.5); Eosinophils % (auto) 0.6 %; Hematocrit (blood only) 33.7 % (42-52); Hemoglobin 11.3 g/dL (14.0-18.0); Immature Granulocytes # (auto) 0.03 K/uL (0.00-0.02); Immature Granulocytes % (auto) 0.4 %; Lymphocytes # (auto) 2.49 K/uL (1.2-3.4); Lymphocytes % (auto) 34.7 %; Mean Corpuscular Hemoglobin 31.3 pg (25-34); Mean Corpuscular Hgb Conc 33.5 g/dL (32-36); Mean Corpuscular Volume 93.4 fL (80-100); Mean Platelet Volume 9.5 fL (7.4-10.4); Monocytes # (auto) 0.58 K/uL (0.11-0.59); Monocytes % (auto) 8.1 %; Neutrophils # (auto) 4.03 K/uL (1.4-6.5); Neutrophils % (auto) 56.2 %; Platelet Count 159 K/uL (130-400); RDW Coefficient of Variation 12.9 % (11.5-14.5); RDW Standard Deviation 44.1 fL (36.4-46.3); Red Blood Count 3.61 M/uL (4.7-6.1); White Blood Count 7.17 K/uL (4.8-10.8)
--- NOTE | 2020-02-24 09:15 | Hospitalist Progress Note ---
Date of Service February 24, 2020 Assessment & Plan (1) Meningitis: Pt is a 19yo with a PMHx significant for AML s/p bone marrow transplant in 2018 and cardiomyopathy on Lisinopril who was admitted with acute meningitis. N. Meningitis: - N. Meningitis PCR positive from CSF, CSF culture growing Gram negative bacteria - continuing to improve symptomatically - 7 days of Rocephin BID 02/19 - 02/25 - Droplet precautions Fever: - one temp overnight up to 38.3C - likely 2/2 atelectasis verse resistance of Neisseria - CRP 2.3, likely downtrending given abx treatment as above - Incentive Spirometer provided instructed to use Q1HWA - if continuing to spike fevers despite treatment as above will consult ID, and broaden antibiotic coverage - addition of Vancomycin meningitic dosing following continued fevers - repeat COVID-19 swab Migraine: - likely multifactorial given meningitic infection, with contributions of post- dural puncture headache, and consistent caffeine use - consideration of IV Caffeine if no improvement with consumption of caffeinated beverages Pain Control - Tylenol 1000mg q8h PRN, Toradol 15mg q6h IV PRN and morphine 2mg q3h PRN for pain - zofran for nausea Hx of AML - Pt states he was diagnosed in August 2017 - Was treated at the [facility] ([facility]) with a bone marrow transplant and chemotherapy that year as well - Last chemotherapy treatment was 2018 - does not appear to be immunosuppressed currently. Chemotherapy induced Cardiomyopathy - Follows with a admitting interviewer from [facility] yearly - continue lisinopril 10mg daily (2) History of bone marrow transplant: Admission and Anticipated Discharge Date Admission Date: February 20, 2020 Supervising Physician Co-Signing Physician Notes I personally examined the patient and verified all morales points of history and exam, discussed case, and agree with decision making with Dr Fuentes. feeling better. headache - now worse when sitting up. overall much better than before though. much more talkative. no new complaints. family present and updated them as well. vitals noted nad heent nc at mmm breathing unlabored no accessory muscles good effort neck full ROM. neuro cn 2-12 grossly intact gross motor/sensory intact. skin no rashes no pallor or icterus neisseria meningitis - clinically improving but now showing low grade temps. lab w/u was very reassuring w normal WBC and marginally elevated CRP and procal (neither of which are in a "bacterial range" although i suspect both are on their way down) -continue rocephin -incentive spirometry for ddx of atelectasis (coached on use - he showed good proficiency, instructed to use 5x/hr) -with persistent low grade temps - and last weekend's exposure to large crowd in area of community spread of covid - reswab (was afebrile and also only about 3 days from exposure when first swabbed) -blood cultures still no growth to date -add vanco and ask lab to run sensitivities on neisseria -follow closely (although clinically fortunately he is looking better) and consider other less likely ddx (other viruses, lyme, etc) if pattern persists and dx doesn't become manifest. otherwise as above Subjective Patient continues to feel better than previously, does endorse the continuation of a headache, that is worsened by light and sound, and by sitting upright. Usually does not drink caffeinated beverages (coffee/tea/carbonated beverages), but does regularly take pre-workout which contains caffeine. Other hairston continuing to feel well without complaints. Update from later in the day: patient continuing to spike intermittent fevers up to 38C despite treatment. Feeling overall well, but continuing to have headache Review of Systems Review of Systems: All systems reviewed & are unremarkable except as noted in Subjective Physical Exam Constitutional: WD/WN, vitals as above Eyes: PERRL, conjunctivae normal, anicteric sclerae Respiratory: normal respiratory effort, lungs clear to auscultation Cardiovascular: Rate/Rhythm: regular rate and regular rhythm Extremities: no pedal edema Musculoskeletal: no cyanosis or clubbing, extremities motor strength 5/5 Neurologic: patellar DTR's 2+ bilat, sensation intact and PERRL, EOMI, accommodation nl, no face palsy, no dysarthria CN's II-XI intact bilaterally and moves all extremities Results & Data Results & Data ([facility]) Vital Signs (Past 12 Hours) Vital Signs Temp Pulse Resp BP BP Pulse Ox 02/24/20 08:59 144/78 H 02/24/20 08:52 37.9 C H 02/24/20 07:53 38.3 C H 02/24/20 07:52 50 L 18 149/72 H 100 02/23/20 23:35 36.8 C 50 L 15 136/76 100 Laboratory Results 02/24/20 02/24/20 02/24/20 Range/Units 08:54 08:54 08:54 WBC 7.17 (4.8-10.8) K/uL RBC 3.61 L (4.7-6.1) M/uL Hgb 11.3 L (14.0-18.0) g/dL Hct 33.7 L (42-52) % MCV 93.4 (80-100) fL MCH 31.3 (25-34) pg MCHC 33.5 (32-36) g/dL RDW Std Deviation 44.1 (36.4-46.3) fL RDW Coeff of Navya 12.9 (11.5-14.5) % Plt Count 159 (130-400) K/uL MPV 9.5 (7.4-10.4) fL Immature Gran % (Auto) 0.4 % Neut % (Auto) 56.2 % Lymph % (Auto) 34.7 % Mineral % (Auto) 8.1 % Eos % (Auto) 0.6 % Baso % (Auto) 0.0 % Neut # (Auto) 4.03 (1.4-6.5) K/uL Lymph # (Auto) 2.49 (1.2-3.4) K/uL Mineral # (Auto) 0.58 (0.11-0.59) K/uL Eos # (Auto) 0.04 (0-0.5) K/uL Baso # (Auto) 0.00 (0-0.2) K/uL Immature Gran # (Auto) 0.03 H (0.00-0.02) K/uL Sodium 139 (136-145) mmol/L Potassium 3.5 (3.5-5.1) mmol/L Chloride 108 H (98-107) mmol/L Carbon Dioxide 25 (21-32) mmol/L Anion Gap 5.0 (3-11) BUN 16 (7-18) mg/dl Creatinine 1.29 (0.6-1.4) mg/dl Est Cr Clr Drug Dosing 92.1 ml/min Est GFR ( Amer) 92.5 Est GFR (Non-Af Amer) 79.8 BUN/Creatinine Ratio 12.2 (10-20) Glucose 95 (70-99) mg/dl Calcium 9.0 (8.5-10.1) mg/dl C-Reactive Protein 2.33 H (0-0.29) mg/dl Procalcitonin 0.45 (0-0.5) ng/ml Medications Administered Current Inpatient Medications Acetaminophen (Acetaminophen 500 Mg Tab) 1,000 mg PO Q8 PRN PRN Reason: As Needed for Fever or Pain Stop: 03/21/20 22:24 Last Admin: 02/24/20 06:06 Dose: 1,000 mg Documented by: Ceftriaxone Sodium 2,000 mg/ (Dextrose) 50 mls @ 100 mls/hr IV Q12H VANI; Protocol Stop: 03/02/20 07:59 Last Infusion: 02/24/20 09:48 Dose: Infused Documented by: Ketorolac Tromethamine (Ketorolac 30 Mg/Ml Vial) 30 mg IV Q6H PRN; Protocol PRN Reason: Pain Stop: 02/25/20 22:24 Last Admin: 02/24/20 10:16 Dose: 30 mg Documented by: Lisinopril (Lisinopril 10 Mg Tab) 10 mg PO DAILY VANI Stop: 03/22/20 08:59 Last Admin: 02/24/20 08:59 Dose: 10 mg Documented by: Melatonin (Melatonin 3 Mg Tab) 6 mg PO HS PRN PRN Reason: Sleep Stop: 03/22/20 22:16 Last Admin: 02/21/20 22:27 Dose: 6 mg Documented by: Morphine Sulfate (Morphine Sulfate 2 Mg/Ml Carp) 2 mg IV Q3H PRN PRN Reason: Severe Pain Stop: 03/05/20 22:24 Last Admin: 02/24/20 12:57 Dose: 2 mg Documented by: Ondansetron HCl (Ondansetron Inj 2 Mg/Ml 2 Ml Vial) 4 mg IV Q6H PRN PRN Reason: Nausea Stop: 03/23/20 01:13 Last Admin: 02/23/20 09:24 Dose: 4 mg Documented by: Polyethylene Glycol (Polyethylene (Miralax) 17 Gm Pack) 17 gm PO DAILY PRN PRN Reason: Constipation Stop: 03/25/20 05:22 Resident Activity Tracking Resident Involvement: Resident Care Provided Care Provided: Adult [facility] Medicine
[2020-02-24 09:33] LABS: BUN Creatinine Ratio 12.2 (10-20); C Reactive Protein 2.33 mg/dl (0-0.29); Creatinine Clr Calc Pharmacy 92.1 ml/min; Est GFR (African American) 92.5; Est GFR (Non-African American) 79.8; Potassium 3.5 mmol/L (3.5-5.1)
[2020-02-24] MEDS: POLYETHYLENE (MIRALAX) 17 GM PACK PO PRN (15:16)
[2020-02-24] MEDS ORDERED: CAFFEINE CITRATE 500 MG in SODIUM CHLORIDE 0.9% 1000ML 1,000 ML IV ONE (16:15)
[2020-02-24] MEDS ORDERED: VANCOMYCIN CONSULT ACTIVE PRN (17:14)
[2020-02-24] MEDS ORDERED: VANCOMYCIN HCL 2,000 MG in SODIUM CHLORIDE 0.9% 500 ML IV ONE (17:30)
--- NOTE | 2020-02-24 18:19 | Billing Data ---
Date of Service February 24, 2020 Coding Level of Care Code 84323 Subseq Hosp Care Lvl 3
--- NOTE | 2020-02-24 18:55 | Pharmacy Report ---
Pharmacy Abx Dose Short Note - Date of Service February 24, 2020 - Assessment & Plan Assessment 19 year old M receiving IV Vancomycin for treatment of meningitis Day # 1 of antimicrobial therapy. * Patient has been on Ceftriaxone 2g IV q12 since 02/20/20, but remains febrile. Vancomycin being added due to concerns for potential resistance to ceftriaxone. CSF grew Neisseria meningitidis * No renal impairment noted. Most recent sCr = 1.29 mg/dL with estimated CrCl ~92 mL/min. Estimated pharmacokinetic parameters: * Ke ~0.08/hr, T1/2 ~8.7 hrs Patient meets criteria for vancomycin AUC dosing nomogram AUC/LUIS is the preferred PK/PD target for vancomycin Target AUC/LUIS = 400-600 AUC guided dosing is effective and associated with decreased risk of nephrotoxicity Plan Vancomycin * Give Vancomycin 2000mg (~25 mg/kg) IV x 1 as loading dose * Initiate Vancomycin 1000mg IV q8 (per Vancomycin AUC nomogram) * Given severity of infection, will check early trough prior to 3rd dose to reassess dosing regimen Pharmacy will continue to follow and will adjust dose/frequency as necessary. Thank you.
[2020-02-24] MEDS ORDERED: diphenhydrAMINE 50 MG/ML VIAL IV STA (20:47)
[2020-02-25] MEDS: VANCOMYCIN HCL 1,000 MG in SODIUM CHLORIDE 0.9% 250 ML IV SCH ×3 (00:10→18:18)
[2020-02-25] MEDS: ACETAMINOPHEN 500 MG TAB PO PRN ×2 (00:10→18:23)
[2020-02-25] MEDS ORDERED: diphenhydrAMINE 50 MG/ML VIAL IV PRN (00:41)
[2020-02-25] MEDS: MoRPHine SULFATE 2 MG/ML CARP IV PRN ×3 (01:39→11:40)
[2020-02-25] MEDS: KETOROLAC 30 MG/ML VIAL IV PRN ×2 (05:10→13:32)
[2020-02-25 05:50] LABS: Basophils # (auto) 0.02 K/uL (0-0.2); Basophils % (auto) 0.2 %; Eosinophils % (auto) 1.1 %; Hematocrit (blood only) 33.5 % (42-52); Immature Granulocytes # (auto) 0.04 K/uL (0.00-0.02); Immature Granulocytes % (auto) 0.4 %; Lymphocytes # (auto) 2.62 K/uL (1.2-3.4); Lymphocytes % (auto) 29.4 %; Mean Corpuscular Hemoglobin 31.3 pg (25-34); Mean Corpuscular Hgb Conc 32.8 g/dL (32-36); Mean Corpuscular Volume 95.2 fL (80-100); Mean Platelet Volume 10.5 fL (7.4-10.4); Monocytes # (auto) 0.78 K/uL (0.11-0.59); Monocytes % (auto) 8.7 %; Neutrophils # (auto) 5.36 K/uL (1.4-6.5); Neutrophils % (auto) 60.2 %; Platelet Count 193 K/uL (130-400); RDW Coefficient of Variation 13.1 % (11.5-14.5); RDW Standard Deviation 45.2 fL (36.4-46.3); Red Blood Count 3.52 M/uL (4.7-6.1); White Blood Count 8.92 K/uL (4.8-10.8)
[2020-02-25 06:23] LABS: C Reactive Protein 1.44 mg/dl (0-0.29); Creatinine Clr Calc Pharmacy 92.1 ml/min; Est GFR (African American) 92.5; Est GFR (Non-African American) 79.8
[2020-02-25] MEDS: cefTRIAXone SODIUM 2,000 MG in DEXTROSE 5% 50 ML IV SCH ×2 (09:44→19:45)
[2020-02-25] MEDS: lisinopril 10 MG TAB PO SCH (09:46)
--- NOTE | 2020-02-25 11:35 | Hospitalist Progress Note ---
Date of Service February 25, 2020 Assessment & Plan (1) Meningitis: Pt is a 19yo with a PMHx significant for AML s/p bone marrow transplant in 2018 and cardiomyopathy on Lisinopril who was admitted with acute meningitis. N. Meningitis: - N. Meningitis PCR positive from CSF, CSF culture growing Gram negative bacteria - continuing to improve symptomatically - 7 days of Rocephin BID 02/19 - 02/25 - Droplet precautions Fever: - one temp overnight up to 38.3C - likely 2/2 atelectasis verse resistance of Neisseria - CRP downtrending this morning - Incentive Spirometer provided instructed to use Q1HWA - addition of Vancomycin meningitic dosing following continued fevers - repeat COVID-19 swab negative - Naa ID consulted: appreciate recommendations Migraine: - likely multifactorial given meningitic infection, with contributions of post- dural puncture headache, and consistent caffeine use - improved with Pain Control - Tylenol 1000mg q8h PRN, Toradol 15mg q6h IV PRN and morphine 2mg q3h PRN for pain - zofran for nausea Hx of AML - Pt states he was diagnosed in August 2017 - Was treated at the [facility] ([facility]) with a bone marrow transplant and chemotherapy that year as well - Last chemotherapy treatment was 2018 - does not appear to be immunosuppressed currently. Chemotherapy induced Cardiomyopathy - Follows with a inserting machine operator from [facility] yearly - continue lisinopril 10mg daily (2) History of bone marrow transplant: Admission and Anticipated Discharge Date Admission Date: February 20, 2020 Supervising Physician Co-Signing Physician Notes I personally examined the patient and verified all morales points of history and exam, discussed case, and agree with decision making with Dr Fuentes. continues to feel OK - mostly bored. headache lessening. discussed ongoing low grade temps. await ID input but pt himself is overall feeling better vitals noted nad heent nc at mmm breathing unlabored no accessory muscles good effort neck full ROM. neuro cn 2-12 grossly intact gross motor/sensory intact. skin no rashes no pallor or icterus neisseria meningitis - clinically improving but still showing low grade temps. lab w/u was very reassuring w normal WBC and marginally elevated CRP (trending down) and procal (trending down as well)(and neither of which are in a "bacterial range" at this point) -continue rocephin, for now since still low grade temps, awaiting ID input, and high risk diagnosis - also on vanco (some literature suggests this can treat neisseria if rare occurence of rocephin resistance, alternate would be cloramphenicol) -incentive spirometry for ddx of atelectasis (he showed good proficiency, previously instructed to use 5x/hr) -blood cultures still no growth to date -discussed with lab to run sensitivities on neisseria - they're looking into what is being run at [facility] and will call hospitalist office -follow closely (although clinically fortunately he is looking better) and consider other less likely ddx (other viruses (repeat COVID was negative), lyme, etc) if pattern persists and dx doesn't become manifest. -updated parents at the bedside otherwise as above Subjective Patient thinks that the headache greatly improved following receiving the caffeine medication, thinks that where the headache had previously been any where from and 6 to a 9, since receiving the caffeine he feels like it has been a 3 or a 4. Has not had any fevers, chills, sweats, or changes in sensation/strength. Review of Systems Review of Systems: All systems reviewed & are unremarkable except as noted in Subjective Physical Exam Constitutional: WD/WN, vitals as above Eyes: PERRL, conjunctivae normal, anicteric sclerae Respiratory: normal respiratory effort, lungs clear to auscultation Cardiovascular: Rate/Rhythm: regular rate and regular rhythm Extremities: no pedal edema Musculoskeletal: no cyanosis or clubbing, extremities motor strength 5/5 Neurologic: patellar DTR's 2+ bilat, sensation intact and PERRL, EOMI, accommodation nl, no face palsy, no dysarthria CN's II-XI intact bilaterally and moves all extremities Results & Data Results & Data ([facility]) Vital Signs (Past 12 Hours) Vital Signs Temp Pulse Resp BP Pulse Ox 02/25/20 09:45 119/66 02/25/20 07:34 37.5 C 52 L 16 127/72 98 Laboratory Results 02/25/20 02/25/20 02/25/20 Range/Units 05:15 05:15 05:15 WBC 8.92 (4.8-10.8) K/uL RBC 3.52 L (4.7-6.1) M/uL Hgb 11.0 L (14.0-18.0) g/dL Hct 33.5 L (42-52) % MCV 95.2 (80-100) fL MCH 31.3 (25-34) pg MCHC 32.8 (32-36) g/dL RDW Std Deviation 45.2 (36.4-46.3) fL RDW Coeff of Navya 13.1 (11.5-14.5) % Plt Count 193 (130-400) K/uL MPV 10.5 H (7.4-10.4) fL Immature Gran % (Auto) 0.4 % Neut % (Auto) 60.2 % Lymph % (Auto) 29.4 % Nicholas % (Auto) 8.7 % Eos % (Auto) 1.1 % Baso % (Auto) 0.2 % Neut # (Auto) 5.36 (1.4-6.5) K/uL Lymph # (Auto) 2.62 (1.2-3.4) K/uL Nicholas # (Auto) 0.78 H (0.11-0.59) K/uL Eos # (Auto) 0.10 (0-0.5) K/uL Baso # (Auto) 0.02 (0-0.2) K/uL Immature Gran # (Auto) 0.04 H (0.00-0.02) K/uL Creatinine 1.29 (0.6-1.4) mg/dl Est Cr Clr Drug Dosing 92.1 ml/min Est GFR ( Amer) 92.5 Est GFR (Non-Af Amer) 79.8 C-Reactive Protein 1.44 H (0-0.29) mg/dl Procalcitonin 0.28 (0-0.5) ng/ml COVID-19 Eval Order COVID-19 PCR (Negative) 02/24/20 02/24/20 Range/Units 18:45 18:45 WBC (4.8-10.8) K/uL RBC (4.7-6.1) M/uL Hgb (14.0-18.0) g/dL Hct (42-52) % MCV (80-100) fL MCH (25-34) pg MCHC (32-36) g/dL RDW Std Deviation (36.4-46.3) fL RDW Coeff of Navya (11.5-14.5) % Plt Count (130-400) K/uL MPV (7.4-10.4) fL Immature Gran % (Auto) % Neut % (Auto) % Lymph % (Auto) % Nicholas % (Auto) % Eos % (Auto) % Baso % (Auto) % Neut # (Auto) (1.4-6.5) K/uL Lymph # (Auto) (1.2-3.4) K/uL Nicholas # (Auto) (0.11-0.59) K/uL Eos # (Auto) (0-0.5) K/uL Baso # (Auto) (0-0.2) K/uL Immature Gran # (Auto) (0.00-0.02) K/uL Creatinine (0.6-1.4) mg/dl Est Cr Clr Drug Dosing ml/min Est GFR ( Amer) Est GFR (Non-Af Amer) C-Reactive Protein (0-0.29) mg/dl Procalcitonin (0-0.5) ng/ml COVID-19 Eval Order Covid19 Done at [facility] COVID-19 PCR NEGATIVE (Negative) Medications Administered Current Inpatient Medications Acetaminophen (Acetaminophen 500 Mg Tab) 1,000 mg PO Q8 PRN PRN Reason: As Needed for Fever or Pain Stop: 03/21/20 22:24 Last Admin: 02/25/20 00:10 Dose: 1,000 mg Documented by: Diphenhydramine HCl (Diphenhydramine 50 Mg/Ml Vial) 12.5 mg IV Q4H PRN PRN Reason: rash/hives Stop: 03/26/20 00:40 Ceftriaxone Sodium 2,000 mg/ (Dextrose) 50 mls @ 100 mls/hr IV Q12H VANI; Protocol Stop: 03/02/20 07:59 Last Infusion: 02/25/20 10:22 Dose: Infused Documented by: Vancomycin HCl 1,000 mg/ (Sodium Chloride) 270 mls @ 200 mls/hr IV Q8H VANI Stop: 03/06/20 00:00 Last Infusion: 02/25/20 12:41 Dose: Infused Documented by: Ketorolac Tromethamine (Ketorolac 30 Mg/Ml Vial) 30 mg IV Q6H PRN; Protocol PRN Reason: Pain Stop: 02/25/20 22:24 Last Admin: 02/25/20 13:32 Dose: 30 mg Documented by: Lisinopril (Lisinopril 10 Mg Tab) 10 mg PO DAILY VANI Stop: 03/22/20 08:59 Last Admin: 02/25/20 09:46 Dose: 10 mg Documented by: Melatonin (Melatonin 3 Mg Tab) 6 mg PO HS PRN PRN Reason: Sleep Stop: 03/22/20 22:16 Last Admin: 02/21/20 22:27 Dose: 6 mg Documented by: Miscellaneous Information (Vancomycin Consult Active) 1 ea N/A UD PRN PRN Reason: Consult Stop: 03/25/20 17:13 Morphine Sulfate (Morphine Sulfate 2 Mg/Ml Carp) 2 mg IV Q3H PRN PRN Reason: Severe Pain Stop: 03/05/20 22:24 Last Admin: 02/25/20 11:40 Dose: 2 mg Documented by: Ondansetron HCl (Ondansetron Inj 2 Mg/Ml 2 Ml Vial) 4 mg IV Q6H PRN PRN Reason: Nausea Stop: 03/23/20 01:13 Last Admin: 02/23/20 09:24 Dose: 4 mg Documented by: Polyethylene Glycol (Polyethylene (Miralax) 17 Gm Pack) 17 gm PO DAILY PRN PRN Reason: Constipation Stop: 03/25/20 05:22 Last Admin: 02/24/20 15:16 Dose: 17 gm Documented by: Resident Activity Tracking Resident Involvement: Resident Care Provided Care Provided: Adult Hospital Medicine
[2020-02-25] MEDS ORDERED: VANCOMYCIN TROUGH ONE ×2 (15:30→17:30)
[2020-02-25] MEDS: POLYETHYLENE (MIRALAX) 17 GM PACK PO PRN (15:43)
--- NOTE | 2020-02-25 15:45 | Billing Data ---
Date of Service February 25, 2020 Coding Level of Care Code 30050 Subseq Hosp Care Lvl 3
[2020-02-25] MEDS ORDERED: Nursing to Pharmacy Communication SCH (16:15)
--- NOTE | 2020-02-25 20:34 | Pharmacy Report ---
Pharmacy Abx Dose Short Note - Date of Service February 25, 2020 - Assessment & Plan Assessment 19 year old M receiving IV Vancomycin and Ceftriaxone (not a consult) for treatment of meningitis Day # 2 of antimicrobial therapy. Plan Vancomycin * Trough level of 10.6 mcg/mL is subtherapeutic. Will shorten dosing interval to target a higher trough. * Change to 1000 mg IV every 6 hours * Goal trough level for meningitis : 15 to 20 mcg/mL * Trough level ordered for: 02/26/20 @ 1130 (early level prior to 3rd dose and therefore not reflective of steady state, but would like to assess dosing regimen earlier due to aggressive dosing interval and severity of infection) Pharmacy will continue to follow and will adjust dose/frequency as necessary. Thank you.
[2020-02-25] MEDS ORDERED: CAFFEINE CITRATE 500 MG in SODIUM CHLORIDE 0.9% 1000ML 1,000 ML IV SCH (21:00)
[2020-02-26] MEDS: VANCOMYCIN HCL 1,000 MG in SODIUM CHLORIDE 0.9% 250 ML IV SCH ×3 (00:13→12:28)
[2020-02-26] MEDS: MoRPHine SULFATE 2 MG/ML CARP IV PRN ×2 (03:18→06:05)
[2020-02-26 06:17] LABS: Basophils # (auto) 0.02 K/uL (0-0.2); Basophils % (auto) 0.3 %; Eosinophils # (auto) 0.13 K/uL (0-0.5); Eosinophils % (auto) 1.7 %; Hematocrit (blood only) 32.5 % (42-52); Immature Granulocytes # (auto) 0.05 K/uL (0.00-0.02); Immature Granulocytes % (auto) 0.7 %; Lymphocytes # (auto) 2.37 K/uL (1.2-3.4); Lymphocytes % (auto) 31.2 %; Mean Corpuscular Hemoglobin 31.7 pg (25-34); Mean Corpuscular Hgb Conc 33.8 g/dL (32-36); Mean Corpuscular Volume 93.7 fL (80-100); Mean Platelet Volume 10.1 fL (7.4-10.4); Monocytes # (auto) 0.56 K/uL (0.11-0.59); Monocytes % (auto) 7.4 %; Neutrophils # (auto) 4.47 K/uL (1.4-6.5); Neutrophils % (auto) 58.7 %; Platelet Count 211 K/uL (130-400); RDW Coefficient of Variation 13.3 % (11.5-14.5); RDW Standard Deviation 45.4 fL (36.4-46.3); Red Blood Count 3.47 M/uL (4.7-6.1)
[2020-02-26 06:40] LABS: C Reactive Protein 0.95 mg/dl (0-0.29); Creatinine Clr Calc Pharmacy 95.8 ml/min; Est GFR (African American) 97.1; Est GFR (Non-African American) 83.8
[2020-02-26] MEDS: ACETAMINOPHEN 500 MG TAB PO PRN ×2 (07:55→17:09)
[2020-02-26] MEDS: lisinopril 10 MG TAB PO SCH (07:55)
[2020-02-26] MEDS: cefTRIAXone SODIUM 2,000 MG in DEXTROSE 5% 50 ML IV SCH ×2 (07:55→19:30)
[2020-02-26] MEDS ORDERED: VANCOMYCIN TROUGH ONE (11:30)
--- NOTE | 2020-02-26 13:21 | Pharmacy Report ---
Pharmacy Abx Dose Short Note - Date of Service February 26, 2020 - Assessment & Plan Assessment 19 year old M receiving Vancomycin + Ceftriaxone for treatment of meningitis * Day # 3 of antimicrobial therapy * Patient has been afebrile x 24 hours. WBCs trended down today. * CSF culture grew N. meningitidis. Spoke w/ inpatient lab and results were sent to [facility]. They would have to send the results to the [facility] for sensitivities which would take approximately 2 weeks. Inpatient lab specimen is not viable at this time but micro is trying to regenerate growth. If this is possible, we would have to send specimen to our reference lab for sensitivities so still looking at a 48-72 hour window. * Naa MAYER is consulted but have yet to see the patient. Will await their recommendations. Plan Vancomycin * Trough level of 17.8 mcg/mL is therapeutic * Change to 1250 mg IV every 8 hours * Although trough is therapeutic today, this is a significant increase from the trough yesterday on 1 gm every 8 hours. I believe that if this dose is continue, then the patient will be at risk of having a supratherapeutic trough which could result in nephrotoxicity. Therefore, I have decided to increase the dose to 1250 mg (16 mg/kg) and change the dosing interval to every 8 hours. This should result in a trough > 15 mcg/mL. * Goal trough level: 15 to 20 mcg/mL * Trough level ordered for February 26 at 1930. This will represent steady state levels Ceftriaxone * Continue 2 gm IV every 12 hours Pharmacy will continue to follow and will adjust dose/frequency as necessary. Thank you.
--- NOTE | 2020-02-26 14:01 | Hospitalist Progress Note ---
Date of Service February 26, 2020 Assessment & Plan Admission and Anticipated Discharge Date Admission Date: February 20, 2020 Assessment & Plan (1) Meningitis: Pt is a 19yo s/p bone marrow transplant for h/o AML, who was admitted for severe headache and fever. Per CSF findings, patient was diagnosed with acute meningitis -started on 7 day course of Rocephin. Currently on day 7. There has been symptomatic improvement Fever: - one temp overnight up to 38.3C, likely resulting from Neisseria resistance - CRP downtrending (1.44 to 0.95) - addition of Vancomycin meningitic dosing following continued fevers - Awaiting [facility] ID consult, to determine length of vancomycin dose Migraine: - likely multifactorial, possibly combination of consistent caffeine use, meningitic infection, and post-dural puncture headache Improved with caffeine citrate and Pain Control - Tylenol 1000mg q8h PRN, Toradol 15mg q6h IV PRN and morphine 2mg q3h PRN for pain - zofran for nausea Hx of AML - Pt states he was diagnosed in August 2017 - Was treated at the [facility] ([facility]) with a bone marrow transplant and chemotherapy that year as well - Last chemotherapy treatment was 2017 - does not appear to be immunosuppressed currently. Chemotherapy induced Cardiomyopathy - Follows with a business analytics faculty member from [facility] yearly - continue lisinopril 10mg daily FEN/GI - Regular diet DVT Prophylaxis - ambulation, low risk Code - Full Code Dispo - MedSurg, awaiting ID consult Supervising Physician Co-Signing Physician Notes Attending attestation Pt seen and examined in concert with Dr. Navarrete and Std Dr Mcmillan. In agreement with the documented findings as noted in the documentation with any exceptions or additions as noted here. 19 y/o male h/o AML s/p marrow transplant p/w N. meningitis meninigitis Patient resting in bed with mild left temporal headache which is overall better than intermittent headaches on admission and does not, on history, appear discretely positional (as in, position does not appear to trigger or ameliorate). On examination, S1/S2 nl RRR no MCG. CTAB. Abd NT/ND BS+ve. CN II-XII grossly intact as tested, neg K/B. Meningitis - improving on ceftriaxone and vancomycin, the latter added following febrile episode during admission. ID consultation pending for duration and regimen. Migraine headaches - likely multifactorial, but well controlled at present. Continue pain medication as noted. Chemotherapy induced cardiomyopathy - continue lisinopril, avoid cardiotoxic agents where able. Else see resident documentation as noted. Subjective Patient is a 19 y/o male s/p bone marrow transplant for AML. He was admitted for severe headache and fever. CSF findings were positive for N. Menigitides. Of note, the patient did not receive his meningitis B vaccine yet, as he was planning to do so during the break. Today, he feels much better. His headaches are much improved, although he notes that they are still worse when he lays down vs when he sits up. His neck pain is also significantly decreased. Review of Systems Constitutional: no fever, chills Eyes: mild photophobia. no eye pain or double vision Ear, Nose, Mouth, Throat: decreased neck pain Cardiovascular: no radiating jaw, neck or arm pain Neurologic: headache that comes and goes Physical Exam Constitutional: well developed, well nourished, no acute distress Eyes: EOM intact bilaterally Neck: negative Brudzinski's. Full neck ROM Respiratory: normal respiratory effort, lungs clear to auscultation Cardiovascular: RRR, no murmur, no edema mildly bradycardic. Pulse 56. Normal s1/s2 Skin: no rashes/pallor/icterus Neurologic: sensation and gross strength in tact Psychiatric: A+Ox3, euthymic affect Results & Data Results & Data ([facility]) Vital Signs (Past 12 Hours) Vital Signs Temp Pulse Resp BP Pulse Ox 02/26/20 07:29 37.1 C 56 L 16 127/68 99
[2020-02-26] MEDS: POLYETHYLENE (MIRALAX) 17 GM PACK PO PRN (17:09)
[2020-02-26] MEDS: VANCOMYCIN HCL 1,250 MG in SODIUM CHLORIDE 0.9% 250 ML IV SCH (20:16)
[2020-02-27] MEDS: MoRPHine SULFATE 2 MG/ML CARP IV PRN (00:41)
[2020-02-27] MEDS: ACETAMINOPHEN 500 MG TAB PO PRN (02:46)
[2020-02-27] MEDS: VANCOMYCIN HCL 1,250 MG in SODIUM CHLORIDE 0.9% 250 ML IV SCH ×2 (04:52→12:06)
[2020-02-27 06:38] LABS: Creatinine Clr Calc Pharmacy 103.3 ml/min; Est GFR (African American) 106.3; Est GFR (Non-African American) 91.7
--- NOTE | 2020-02-27 08:17 | Hospitalist Progress Note ---
Date of Service February 27, 2020 Assessment & Plan (1) Meningitis: Pt is a 19yo with a PMHx significant for AML s/p bone marrow transplant in 2018 and cardiomyopathy on Lisinopril who was admitted with acute meningitis. N. Meningitis: - N. Meningitis PCR positive from CSF, CSF culture growing Gram negative bacteria - [facility] ID consult recommendations finally received: would expect full recovery by day 7, possibly lengthened due to hx AML. will finish out course tonight and tomorrow AM. - continuing to improve symptomatically - 7 days of Rocephin BID 02/20 - 02/26 - Droplet precautions Fever: - one temp overnight up to 38.3C - likely 2/2 atelectasis verse resistance of Neisseria - CRP, procal downtrended - WBC wnl. - Afebrile since then Migraine: - likely multifactorial given meningitic infection, with contributions of post- dural puncture headache, and consistent caffeine use - improved with caffeine citrate, Pain Control - Tylenol 1000mg q8h PRN, Toradol 15mg q6h IV PRN and morphine 2mg q3h PRN for pain - zofran for nausea Hx of AML - Pt states he was diagnosed in August 2017 - Was treated at [facility] ([facility]) with a bone marrow transplant and chemotherapy that year as well - Last chemotherapy treatment was 2017 - does not appear to be immunosuppressed currently. Chemotherapy induced Cardiomyopathy - Follows with a granulating blender from [facility] yearly - continue lisinopril 10mg daily DVT ppx: low risk, ambulate as tolerated FEN/GI: regular diet Code status: Full Code Dispo: d/c home tomorrow morning (2) History of bone marrow transplant: Admission and Anticipated Discharge Date Admission Date: February 20, 2020 Supervising Physician Co-Signing Physician Notes Attending attestation Pt seen and examined in concert with Dr. Navarrete. In agreement with the documented findings as noted in the documentation with any exceptions or additions as noted here. 19 y/o male h/o AML s/p marrow transplant p/w N. meningitis meningitis Headache still gradually improving but persistent left temporal intermittent sharp pain. Overall somewhat fatigued but doing well, checking email. Mother at bedside. On examination, S1/S2 nl RRR no MCG. CTAB. Abd NT/ND BS+ve. CN II-XII grossly intact as tested, neg K/B. Meningitis - ID consultation appreciated - d/c vancomycin, continue cetriaxone - dose at 2000 and then 0800 in AM should be sufficient per ID with good outpatient follow up and precautions for changing sx. Migraine headaches - multifactorial, but well controlled at present. Continue pain medication as noted. Chemotherapy induced cardiomyopathy - continue lisinopril, avoid cardiotoxic agents where able. Else see resident documentation as noted. Subjective Feeling well this morning. Continues to be anxious to leave the hospital. nausea, headaches, photophobia much improved. Review of Systems Constitutional: no fever, no chills, no body aches and no fatigue Respiratory: no cough and no dyspnea Cardiovascular: no chest pain, no dyspnea and no edema Gastrointestinal: no abdominal pain, no nausea, no vomiting, no constipation and no diarrhea/loose stools Physical Exam Constitutional: WD/WN, vitals as above Eyes: PERRL, conjunctivae normal, anicteric sclerae Respiratory: normal respiratory effort, lungs clear to auscultation Cardiovascular: Rate/Rhythm: regular rate and regular rhythm Extremities: no pedal edema Musculoskeletal: no cyanosis or clubbing, extremities motor strength 5/5 Neurologic: PERRL, EOMI, accommodation nl, no face palsy, no dysarthria CN's II-XI intact bilaterally and moves all extremities Results & Data Results & Data ([facility]) Vital Signs (Past 12 Hours) Vital Signs Temp Pulse Resp BP BP Pulse Ox 02/27/20 07:44 36.6 C 57 L 16 117/74 100 02/26/20 23:37 37.0 C 52 L 16 146/82 H 100 Laboratory Results WBC 7.60 K/uL (4.8-10.8) 02/26/20 05:55 RBC 3.47 M/uL (4.7-6.1) L 02/26/20 05:55 Hgb 11.0 g/dL (14.0-18.0) L 02/26/20 05:55 Hct 32.5 % (42-52) L 02/26/20 05:55 MCV 93.7 fL (80-100) 02/26/20 05:55 MCH 31.7 pg (25-34) 02/26/20 05:55 MCHC 33.8 g/dL (32-36) 02/26/20 05:55 RDW Std Deviation 45.4 fL (36.4-46.3) 02/26/20 05:55 RDW Coeff of Navya 13.3 % (11.5-14.5) 02/26/20 05:55 Plt Count 211 K/uL (130-400) 02/26/20 05:55 MPV 10.1 fL (7.4-10.4) 02/26/20 05:55 Immature Gran % (Auto) 0.7 % 02/26/20 05:55 Neut % (Auto) 58.7 % 02/26/20 05:55 Lymph % (Auto) 31.2 % 02/26/20 05:55 Menard % (Auto) 7.4 % 02/26/20 05:55 Eos % (Auto) 1.7 % 02/26/20 05:55 Baso % (Auto) 0.3 % 02/26/20 05:55 Neut # (Auto) 4.47 K/uL (1.4-6.5) 02/26/20 05:55 Lymph # (Auto) 2.37 K/uL (1.2-3.4) 02/26/20 05:55 Menard # (Auto) 0.56 K/uL (0.11-0.59) 02/26/20 05:55 Eos # (Auto) 0.13 K/uL (0-0.5) 02/26/20 05:55 Baso # (Auto) 0.02 K/uL (0-0.2) 02/26/20 05:55 Immature Gran # (Auto) 0.05 K/uL (0.00-0.02) H 02/26/20 05:55 Sodium 139 mmol/L (136-145) 02/24/20 08:54 Potassium 3.5 mmol/L (3.5-5.1) 02/24/20 08:54 Chloride 108 mmol/L (98-107) H 02/24/20 08:54 Carbon Dioxide 25 mmol/L (21-32) 02/24/20 08:54 Anion Gap 5.0 (3-11) 02/24/20 08:54 BUN 16 mg/dl (7-18) 02/24/20 08:54 Creatinine 1.15 mg/dl (0.6-1.4) 02/27/20 05:32 Est Cr Clr Drug Dosing 103.3 ml/min 02/27/20 05:32 Est GFR ( Amer) 106.3 02/27/20 05:32 Est GFR (Non-Af Amer) 91.7 02/27/20 05:32 BUN/Creatinine Ratio 12.2 (-20) 02/24/20 08:54 Glucose 95 mg/dl (70-99) 02/24/20 08:54 Calcium 9.0 mg/dl (8.5-10.1) 02/24/20 08:54 C-Reactive Protein 0.95 mg/dl (0-0.29) H 02/26/20 05:55 Procalcitonin 0.12 ng/ml (0-0.5) 02/26/20 05:55 CSF Appearance Cloudy 02/20/20 18:30 CSF Color Yellow 02/20/20 18:30 Xanthrochromic Xanthochromic 02/20/20 18:30 CSF WBC 20496 /uL (0-5) H* 02/20/20 18:30 CSF RBC 530 /uL (0-) 02/20/20 18:30 CSF Cell Count Tube # 3 02/20/20 18:30 CSF Mononuclear WBCs 5.0 % 02/20/20 18:30 CSF Mononuclear WBCs % 7.3 % 02/20/20 18:30 CSF Polynuclear WBCs 95.0 % 02/20/20 18:30 CSF Polynuclear WBCs % 92.7 % 02/20/20 18:30 CSF Chemistry Tube # 1 02/20/20 18:30 CSF Chemistry Tube # Cancelled 02/20/20 18:30 CSF Glucose < 1 mg/dl (40-70) L 02/20/20 18:30 CSF Glucose Cancelled 02/20/20 18:30 CSF Total Protein 841.0 mg/dl (15-45) H 02/20/20 18:30 CSF C.neoform/gat PCR Not Detected (NotDetected) 02/20/20 18:30 CSF CMV DNA (PCR) Not Detected (NotDetected) 02/20/20 18:30 CSF Enterovirus (PCR) Not Detected (NotDetected) 02/20/20 18:30 CSF E. coli K1 (PCR) Not Detected (NotDetected) 02/20/20 18:30 CSF H. influenzae (PCR) Not Detected (NotDetected) 02/20/20 18:30 CSF HSV I (PCR) Not Detected (NotDetected) 02/20/20 18:30 CSF HSV II (PCR) Not Detected (NotDetected) 02/20/20 18:30 CSF HHV 6 (PCR) Not Detected (NotDetected) 02/20/20 18:30 CSF L.monocytogenes PCR Not Detected (NotDetected) 02/20/20 18:30 CSF N. meningitidis PCR DETECTED (NotDetected) A* 02/20/20 18:30 CSF Parechovirus (PCR) Not Detected (NotDetected) 02/20/20 18:30 CSF S. agalactiae (PCR) Not Detected (NotDetected) 02/20/20 18:30 CSF S. pneumoniae (PCR) Not Detected (NotDetected) 02/20/20 18:30 CSF VZV DNA (PCR) Not Detected (NotDetected) 02/20/20 18:30 Vancomycin Trough 17.8 mcg/ml (See Comment) 02/26/20 11:48 Lyme Disease IgG Ab Negative (Negative) 02/20/20 17:25 Lyme Disease IgM Ab Negative (Negative) 02/20/20 17:25 COVID-19 Eval Order Covid19 Done at [facility] 02/24/20 18:45 COVID-19 PCR NEGATIVE (Negative) 02/24/20 18:45 Resident Activity Tracking Resident Involvement: Resident Care Provided Care Provided: Adult Hospital Medicine
[2020-02-27] MEDS: lisinopril 10 MG TAB PO SCH (08:37)
[2020-02-27] MEDS: cefTRIAXone SODIUM 2,000 MG in DEXTROSE 5% 50 ML IV SCH ×2 (09:37→20:52)
[2020-02-27] MEDS ORDERED: VANCOMYCIN TROUGH ONE (19:30)
[2020-02-28] MEDS: cefTRIAXone SODIUM 2,000 MG in DEXTROSE 5% 50 ML IV SCH (08:50)
--- NOTE | 2020-02-28 09:35 | Discharge Summary ---
Date of Service February 28, 2020 Admission HPI Per Admitting Provider Pt is a 19yo with a PMHx significant for AML s/p bone marrow transplant in 2018 and ?cardiomyopathy on Lisinopril who was admitted with acute meningitis. Pt states that he was in his usual state of health until yesterday when he developed a fever of 103. He was then awoken from sleep with a headache that was diffuse and 10/10 and he presented to the ED this AM. He states that it was football and he was at a libertarian on Wednesday in someone's apartment which was packed with many people not wearing masks. No known positive COVID contacts however but states it is possible. States he got the Menactra vaccine but did not get the meningitis B vaccine, which he intended to get once he went home to [place] for thanksgiving. States he has some associated photophobia, neck pain but not neck stiffness and in addition to the headache some pain behind his eyeballs. Denies any N/V, phonophobia. No known drug allergies. His surgical History includes the bone marrow transplant. Fam Hx unremarkable. Current meds include Lisinopril 10mg daily and multivitamins. 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 States he does not smoke or vape, is a social drinker and does not use recreational drugs. ED Course: Vancomycin load, Dexamethasone 10mg, Rocephin 2g, pain meds Admission Exam Per Admitting Provider General: Alert, oriented. No acute distress, laying in bed Skin: No noted rashes or bruises Psych: Appropriate mood and affect Neuro: CNII-XII grossly intact, Kernig's sign negative on my exam HEENT: NC/AT, PERRLA, EOMI, oropharynx moist. Chest: Nontender to palpation. CV: RRR, Normal s1, s2. No murmurs appreciated Resp: Breath sounds clear bilaterally, no increased effort of breathing. No crackles/rhonchi/rales. Abdomen: Soft, nontender, nondistended. No guarding. No organomegaly appreciated. Extremities: No edema in lower extremities bilaterally. Principal Diagnosis Neisseria Meningitis Discharge Exam Constitutional: healthy young male, in no apparent distress, sitting comfortably in bed. Eyes: EOMI, pupils equal and reactive bilaterally, no scleral icterus, no pain with movement Cardiac: RRR, no murmurs, gallops or rubs. Normal S1, S2 Pulm: CTA BL, no wheezes, rhonchi, crackles or rubs, moving air well throughout both lungs Abd: soft, nontender, nondistended, normal bowel sounds, no rebound or guarding Extremities: 2+ peripheral pulses, no edema Neuro: no focal deficits, moving all 4 limbs, A&Ox3 Discharge Data Allergies Allergy/AdvReac Type Severity Reaction Status Date / Time peanut Allergy Severe Anaphylaxis Verified 02/20/20 06:37 ALL NUTS Allergy Severe Hives Uncoded 02/20/20 20:27 Consultations 02/20/20 19:45 ED Decision to Admit Stat 02/24/20 17:16 Consult Infectious Diseases Routine Ordered Studies 02/22/20 01:51 CT head/brain wo con Urgent Hospital Course (1) Meningitis: Pt is a 19yo with a PMHx significant for AML s/p bone marrow transplant in 2018 and cardiomyopathy on Lisinopril who was admitted with acute meningitis. Neisseria Meningitis: identified on PCR from lumbar puncture, with corroboration of growth on CSF culture. Treated with 7 days of BID Ceftriaxone IV. Had one day of fevers during the treatment window that resolved by the next day and did not recur. On the day of fevers he did start receiving vancomycin, which was discontinued at discharge after assistance from infectious disease. Advised that he maintain social distancing, wear a mask around other people and generally observe good hand washing habits as he will be a higher risk for infection in the near weeks after this infection. He did experience temporal headaches as a symptom of the meningitis which had drastically reduced by discharge. Initial symptoms of photo and phonophobia went away completely. We did attempt to contact his oncologist at [facility] but were unable to reach a working number. All other medical conditions managed per home regimen. (2) History of bone marrow transplant: Total Time Total Time Spent Total Time Spent (In Minutes): see attending attestation Discharge Plan Discharge Items Patient Disposition: Home - Self-Care Reason For Visit: MENINGITIS Discharge Diagnosis: Neisseria Meningitis Condition on Discharge: Good Activity: Resume your previous activity Non-emergency contact: Primary Care Provider Call non-emergency contact if: your symptoms worsen and your temperature is above 101 Follow-up/Referrals: [facility] [Primary Care Provider] - (PATIENT AND HIS PARENTS WILL FOLLOW UP WITH PCP IN [place], [place] ONCE THEY GET HOME.) Diet: Regular Addtl Attending Provider Instructions: You were evaluated in the hospital for fevers and headaches that were found to be secondary to Neisseria Meningitis. You were promptly treated with Ceftriaxone which is the first line treatment for this infection and showed improvement. You had new fevers approximately 5 days into the treatment course which raised concern for resistance of the bacteria to the antibiotic. Your fevers subsided within a day and after addition of a second antibiotic. We consulted Infectious Disease for their opinion on options to send you home on a second medication or if your course was complete -- they decided that you likely had a slower response to the Ceftriaxone due to your history of AML, however you have been improving appropriately so you will not need medications at home on discharge. We recommend you get the Meningitis B vaccine whenever able, and continue to get all of your annual flu shots and other vaccinations as indicated. If your headaches, eye pain or nausea suddenly get severely worse in the next week, return to the emergency room for immediate care. Your immune system is likely still compromised after fighting off this infection, so we recommend doing your best to follow masking guidelines and social distancing to minimize chances of picking up COVID19 in or around [place]. Follow up with your primary care provider as needed. Pending Studies at Discharge: No Stand-Alone Forms: My [facility] [email or web address], Smoking Cessation Medications and DC Order Prescriptions: Continued multivitamin Tablet 1 tab PO DAILY RF: 0 lisinopril 10 mg Tablet 10 mg PO DAILY RF: 0 ascorbic acid (vitamin C) [Vitamin C] 500 mg Tablet 0 mg PO DAILY RF: 0 Probiotic 3 billion cell Capsule 0 mmu cells PO DAILY RF: 0 Discharge Orders: Discharge Order (Routine); Ordered 02/28/20 Ordered By: Rosita Navarrete Admission Data Admit Date/Time: 02/20/20 20:54 Attending Provider: Rodrigo Montoya Admit Provider: Michaelle Tinsley Primary Care Provider: [facility] Other Providers: Deepti Alvarez Smriti ; Brandon Humphreys ; Beverley Contreras ; Nino Alvarez I. ; Isael Sierra II ; Karen Mendoza ; Anuj Childress Other Interventions: Discharge Summary Assessment (RN) Last Done: 02/28/20 10:59 Supervising Physician Co-Signing Physician Notes Attending attestation Pt seen and examined in concert with Dr. Navarrete. In agreement with the documented findings as noted in the documentation with any exceptions or additions as noted here. 19 y/o male h/o AML s/p marrow transplant p/w N. meningitis meningitis Near resolution of intermittent left sharp temporal headache and overall malaise. On examination, S1/S2 nl RRR no MCG. CTAB. Abd NT/ND BS+ve. CN II-XII grossly intact as tested, neg K/B. Meningitis - ID consultation appreciated - has completed course of ceftriaxone IV with AM dosing per recommendations. Extensive counseling re: red flag symptoms, changes and further evaluation Migraine headaches - multifactorial. Resolved at this time as above Chemotherapy induced cardiomyopathy - continue lisinopril, avoid cardiotoxic agents where able. 20 minutes spent in the discharge of this patient including evaluation, counseling and coordination of care. Else see resident documentation as noted. Resident Activity Tracking Resident Involvement: Resident Care Provided Care Provided: Adult Hospital Medicine
[2020-02-28] MEDS: lisinopril 10 MG TAB PO SCH (09:55)
== END 2020-02-28 11:21 | disposition home or self-care (01) | DRG 95 ==
LOC: ED 16:50 → SUATTDRO 20:54 → 3E 20:54